=== PATIENT | female | born 1995 | race African-American/Black ===

== ENCOUNTER 2017-03-07 16:42 | Inpatient (IN) | payer MEDICAID ==
[2017-03-07] MEDS ORDERED: ZOFRAN TAB 4 MG SL PRN (18:03)
--- NOTE | 2017-03-07 18:14 | DR.H&P ---
H&P - History & Physical for Day of: H&P Date: 03/07/17 - Chief Complaint Chief Complaint: LEFT WRIST PAIN, FEELS LIKE SICKLE CELL CRISIS - History of Present Illness History of Present Illness: The patient is a 21-year-old black female who presents [facility] with complaint of left wrist pain, chest pain to lower sternum and back pain. States it feels like she is having a sickle cell crisis. Does feel like she may the anemic as well. States symptoms have been worsening since Tuesday. States the pain is more severe this time that was with a previous crisis. Denies any other complaints. - Past Medical History Additional Medical History: Sickle cell disease - Social History Does patient currently use any type of tobacco product: No Have you used tobacco products in the last 12 months: No Type of Tobacco Use: None Does any household member use tobacco: No Alcohol Use: None Drug Use: None - Review of Systems Constitutional: No Symptoms Reported Eyes: No Symptoms Reported ENT: No Symptoms Reported Respiratory: No Symptoms Reported Cardiovascular: No Symptoms Reported Gastrointestinal: No Symptoms Reported Genitourinary: No Symptoms Reported Musculoskeletal: See HPI, Arm Pain, Back Pain, Hand Pain Skin: No Symptoms Reported Neurological: No Symptoms Reported Oriented: Normal Eyes: Normal Ear: Normal Nose: Normal, Injected Respiratory: Clear Throughout Cardiovascular: Normal : Normal Auscultation: Bowel Sounds: Normal Palpation: Normal Tenderness: Normal Skin: Normal Musculoskeletal: Normal Psychiatric: Normal Mood Description: Calm Affect: Normal Speech Pattern: Clear - Assessment/Plan (1) Sickle cell crisis Status: Acute Plan: IV Hydration, CBC, CMP, Retic Count, Pain mgmt (2) Joint pain Status: Acute Plan: Pain mgmt
[2017-03-07 19:00] LABS: RETICULOCYTE % 7.47 % (0.8-2.2)
[2017-03-07 19:01] LABS: BASOPHILS # (AUTO) 0.2 X10^3/uL (0.0-0.1); BASOPHILS % (AUTO) 0.8 % (0.2-1.0); EOSINOPHILS # (AUTO) 0.3 x10^3/uL (0.0-0.2); EOSINOPHILS % (AUTO) 1.5 % (0.9-2.9); HEMATOCRIT 28.4 % (36.0-47.0); HEMOGLOBIN 9.6 g/dL (12.0-16.0); LYMPHOCYTES # (AUTO) 5.8 X10^3/uL (1.3-2.9); LYMPHOCYTES % (AUTO) 25.6 % (21.0-51.0); MEAN CORPUSCULAR HEMOGLOBIN 29.1 pg (27.0-34.0); MEAN CORPUSCULAR HGB CONC 33.7 g/dL (33.0-35.0); MEAN CORPUSCULAR VOLUME 86.3 fL (80.0-100.0); MEAN PLATELET VOLUME 7.2 fL (7.4-11.0); MONOCYTES # (AUTO) 2.7 x10^3/uL (0.3-0.8); MONOCYTES % (AUTO) 12.1 % (0.0-13.0); NEUTROPHILS # (AUTO) 13.5 x10^3/uL (2.2-4.8); PLATELET COUNT 271 X10^3/uL (150.0-450.0); RED BLOOD COUNT 3.29 X10^6/uL (3.5-5.4); RED CELL DISTRIBUTION WIDTH 17.2 % (11.6-16.5); WHITE BLOOD COUNT 22.6 X10^3/uL (3.6-10.0)
[2017-03-07 19:16] LABS: ALANINE AMINOTRANSFERASE 17 Units/L (12-78); ALBUMIN 3.7 g/dL (3.4-5.0); ALKALINE PHOSPHATASE 71 Units/L (46-116); ASPARTATE AMINO TRANSFERASE 17 Units/L (15-37); BLOOD UREA NITROGEN 2 mg/dL (7-18); CALCIUM 9.1 mg/dL (8.5-10.1); CARBON DIOXIDE 28.9 mmol/L (21-32); CHLORIDE 103 mmol/L (98-107); CREATININE 0.62 mg/dL (0.55-1.02); SODIUM 138 mmol/L (136-145); TOTAL PROTEIN 8.5 g/dL (6.4-8.2); eGFR BLACK RACES > 60 (>60); eGFR NON BLACK RACES > 60 (>60)
[2017-03-07 19:29] LABS: BAND NEUTROPHILS % 2 % (0-10); METAMYELOCYTES % 2
[2017-03-07 19:31] LABS: ANISOCYTOSIS 1+; PLATELET MORPHOLOGY COMMENT NORMAL (NORMAL)
[2017-03-07 19:32] LABS: HYPOCHROMASIA SLIGHT; OVALOCYTES PRESENT; TARGET CELLS PRESENT
[2017-03-07] MEDS: NS 1000 ML 1,000 ML IV SCH (20:03)
[2017-03-07] MEDS: DILAUDID INJ IVP PRN (20:05)
[2017-03-07 20:27] VITALS: BMI 26.4
--- NOTE | 2017-03-07 22:33 | RAD ---
Indication: Pain Exam: Portable chest Findings: The heart is borderline enlarged. The pulmonary vessels are normal. No consolidation or eff usion is seen . The bones are intact. Impression: Borderline cardiomegaly with no acute pulmonary abnormality. Reported By:
[2017-03-08] MEDS: DILAUDID INJ IVP PRN ×6 (00:15→20:31)
[2017-03-08] MEDS: BENADRYL INJ 50 MG VIAL IVP PRN ×3 (00:17→16:39)
[2017-03-08] MEDS: NS 1000 ML 1,000 ML IV SCH ×2 (04:26→16:39)
[2017-03-08] MEDS: FOLIC ACID TAB 1 MG PO SCH (08:30)
[2017-03-08] MEDS: COLACE CAP 100 MG PO SCH (10:01)
[2017-03-08] MEDS: PEPCID 20 MG IV PREMIX* 20 MG/50 ML BAG IV SCH ×2 (10:03→20:40)
[2017-03-08] MEDS: NORCO 10/325 TAB PO PRN ×2 (10:13→18:01)
[2017-03-08] MEDS: PHENERGAN INJ 25 MG IVP PRN ×2 (12:37→20:32)
[2017-03-09] MEDS: BENADRYL INJ 50 MG VIAL IVP PRN ×3 (00:39→16:50)
[2017-03-09] MEDS: DILAUDID INJ IVP PRN ×6 (00:44→20:53)
[2017-03-09] MEDS: COLACE CAP 100 MG PO SCH ×2 (01:45→20:53)
[2017-03-09] MEDS: NORCO 10/325 TAB PO PRN ×3 (03:23→23:54)
[2017-03-09] MEDS: PHENERGAN INJ 25 MG IVP PRN ×3 (04:45→20:54)
[2017-03-09 05:10] LABS: BASOPHILS # (AUTO) 0.1 X10^3/uL (0.0-0.1); BASOPHILS % (AUTO) 0.5 % (0.2-1.0); EOSINOPHILS # (AUTO) 0.5 x10^3/uL (0.0-0.2); HEMATOCRIT 24.3 % (36.0-47.0); HEMOGLOBIN 8.2 g/dL (12.0-16.0); LYMPHOCYTES # (AUTO) 5.7 X10^3/uL (1.3-2.9); LYMPHOCYTES % (AUTO) 22.6 % (21.0-51.0); MEAN CORPUSCULAR HEMOGLOBIN 29.4 pg (27.0-34.0); MEAN CORPUSCULAR HGB CONC 33.8 g/dL (33.0-35.0); MEAN CORPUSCULAR VOLUME 86.9 fL (80.0-100.0); MEAN PLATELET VOLUME 7.3 fL (7.4-11.0); MONOCYTES # (AUTO) 4.3 x10^3/uL (0.3-0.8); MONOCYTES % (AUTO) 16.9 % (0.0-13.0); NEUTROPHILS # (AUTO) 14.7 x10^3/uL (2.2-4.8); PLATELET COUNT 244 X10^3/uL (150.0-450.0); RED CELL DISTRIBUTION WIDTH 17.7 % (11.6-16.5); WHITE BLOOD COUNT 25.3 X10^3/uL (3.6-10.0)
[2017-03-09 05:14] LABS: ALANINE AMINOTRANSFERASE 19 Units/L (12-78); ALBUMIN 3.4 g/dL (3.4-5.0); ALKALINE PHOSPHATASE 75 Units/L (46-116); ASPARTATE AMINO TRANSFERASE 24 Units/L (15-37); BLOOD UREA NITROGEN 6 mg/dL (7-18); CALCIUM 8.9 mg/dL (8.5-10.1); CHLORIDE 104 mmol/L (98-107); CREATININE 0.53 mg/dL (0.55-1.02); SODIUM 140 mmol/L (136-145); eGFR BLACK RACES > 60 (>60); eGFR NON BLACK RACES > 60 (>60)
[2017-03-09 06:49] LABS: PLATELET MORPHOLOGY COMMENT NORMAL (NORMAL)
--- NOTE | 2017-03-09 07:20 | RAD ---
HISTORY: Sickle cell anemia, body aches Study: Chest AP portable Comparison: 03/07/2017 Findings: The heart remains enlarged. No congestive heart failure is noted. Increased density in the right lung base is likely due to small infiltrate and some associated subsegmental atelectasis. The remainder o f the right lung and left lungs are clear. The bony thorax is unremarkable. IMPRESSION: Mild cardiomegaly without congestive heart failure Interval development of a small right basilar lung infiltrate with some associated subsegmental atele ctasis Reported By:
[2017-03-09] MEDS: PEPCID 20 MG IV PREMIX* 20 MG/50 ML BAG IV SCH ×2 (08:42→20:52)
[2017-03-09] MEDS: FOLIC ACID TAB 1 MG PO SCH (08:42)
[2017-03-09 09:55] LABS: BILIRUBIN,URINE NEGATIVE (NEGATIVE); BLOOD/HEMOGLOBIN,URINE NEGATIVE (NEGATIVE); GLUCOSE, URINE NEGATIVE (NEGATIVE); KETONES,URINE NEGATIVE (NEGATIVE); LEUKOCYTE ESTERASE ,URINE 1+ (NEGATIVE); NITRITES,URINE NEGATIVE (NEGATIVE); PROTEIN,URINE NEGATIVE (NEGATIVE); UROBILINOGEN,URINE 1+ (NORMAL)
[2017-03-09 10:10] LABS: APPEARANCE,URINE HAZY (CLEAR); BACTERIA,URINE TRACE /HPF (NEGATIVE); COLOR,URINE YELLOW (YELLOW); RBC,URINE 0-2 /HPF (NEGATIVE); SQUAMOUS EPITHELIAL CELL,UR RARE /HPF (NEGATIVE)
[2017-03-09] MEDS: LEVAQUIN PREMIX IV 750 MG 750 MG/150 ML BAG IV SCH (10:10)
[2017-03-09] MEDS: NS 1000 ML 1,000 ML IV SCH ×3 (10:31→22:00)
[2017-03-10] MEDS ORDERED: SALINE 3% 15 ML NEB TX NEB ONE (01:00)
[2017-03-10] MEDS: DILAUDID INJ IVP PRN ×6 (01:02→21:32)
[2017-03-10] MEDS: BENADRYL INJ 50 MG VIAL IVP PRN ×3 (01:02→17:24)
[2017-03-10] MEDS ORDERED: SALINE 3% 15 ML NEB TX ONE (01:05)
[2017-03-10 04:56] LABS: ALANINE AMINOTRANSFERASE 21 Units/L (12-78); ALBUMIN 3.4 g/dL (3.4-5.0); ALKALINE PHOSPHATASE 80 Units/L (46-116); ASPARTATE AMINO TRANSFERASE 20 Units/L (15-37); BLOOD UREA NITROGEN 6 mg/dL (7-18); CALCIUM 8.8 mg/dL (8.5-10.1); CARBON DIOXIDE 29.2 mmol/L (21-32); CHLORIDE 101 mmol/L (98-107); COR NA(FOR HYPERGLY) 139 mmol/L (136-145); CREATININE 0.76 mg/dL (0.55-1.02); SODIUM 137 mmol/L (136-145); TOTAL PROTEIN 8.6 g/dL (6.4-8.2); eGFR BLACK RACES > 60 (>60); eGFR NON BLACK RACES > 60 (>60)
[2017-03-10] MEDS: PHENERGAN INJ 25 MG IVP PRN ×3 (05:10→21:32)
[2017-03-10] MEDS: NS 1000 ML 1,000 ML IV SCH ×4 (05:10→17:24)
[2017-03-10] MEDS: DUONEB 0.5 MG/3 MG NEB SCH ×5 (05:16→20:09)
[2017-03-10 06:26] LABS: BASOPHILS # (AUTO) 0.2 X10^3/uL (0.0-0.1); BASOPHILS % (AUTO) 0.7 % (0.2-1.0); EOSINOPHILS # (AUTO) 0.8 x10^3/uL (0.0-0.2); EOSINOPHILS % (AUTO) 2.7 % (0.9-2.9); HEMATOCRIT 24.4 % (36.0-47.0); HEMOGLOBIN 8.1 g/dL (12.0-16.0); LYMPHOCYTES # (AUTO) 4.5 X10^3/uL (1.3-2.9); LYMPHOCYTES % (AUTO) 16.2 % (21.0-51.0); MEAN CORPUSCULAR HEMOGLOBIN 29.3 pg (27.0-34.0); MEAN CORPUSCULAR HGB CONC 33.3 g/dL (33.0-35.0); MEAN PLATELET VOLUME 7.9 fL (7.4-11.0); MONOCYTES # (AUTO) 3.3 x10^3/uL (0.3-0.8); MONOCYTES % (AUTO) 11.7 % (0.0-13.0); NEUTROPHILS # (AUTO) 19.3 x10^3/uL (2.2-4.8); NEUTROPHILS % (AUTO) 68.7 % (42.0-75.0); PLATELET COUNT 238 X10^3/uL (150.0-450.0); RED BLOOD COUNT 2.78 X10^6/uL (3.5-5.4); RED CELL DISTRIBUTION WIDTH 18.5 % (11.6-16.5)
[2017-03-10 06:28] LABS: WHITE BLOOD COUNT 27.3 X10^3/uL (3.6-10.0)
[2017-03-10 06:47] LABS: HYPOCHROMASIA SLIGHT; PLATELET MORPHOLOGY COMMENT NORMAL (NORMAL)
[2017-03-10] MEDS: PEPCID 20 MG IV PREMIX* 20 MG/50 ML BAG IV SCH ×2 (09:02→21:31)
[2017-03-10] MEDS: LEVAQUIN PREMIX IV 750 MG 750 MG/150 ML BAG IV SCH (09:02)
[2017-03-10] MEDS: FOLIC ACID TAB 1 MG PO SCH (09:03)
[2017-03-10] MEDS: NORCO 10/325 TAB PO PRN (11:14)
--- NOTE | 2017-03-10 13:29 | PCM.PROG ---
Progress Note - Progress Note for Day of Date: 03/10/17 - Subjective Subjective: patient is a 21-year-old black female who was admitted with acute sickle cell crisis and complaints of pain all over. Patient had a chest x-ray abnormality suggesting a possible pneumonia. Patient is currently on IV Levaquin as well as respiratory therapy and supplemental O2. Patient is noncompliant with use of supplemental O2 as directed. Patient continues to complain of pain to chest and bilateral upper extremities "feels like sickle cell". Patient had increased white blood cells today at 27,000, blood cultures are negative at this time. CT of the chest and abdominal series ordered. Continue respiratory care encouraged patient to produce a sputum specimen repeat a.m. labs. - Past Medical Family Social History Past Med/Fam/Surg Hx: No changes since H&P Allergies: Allergies No Known Drug Allergies [NKDA] Allergy (Verified 03/07/17 18:32) - Review of Systems ROS: No change since H&P - Vital Signs and I&O's Vital Signs: Temperature 99.4 F Pulse Rate [Right Brachial] 113 Pulse Rate 82 Respiratory Rate 18 Blood Pressure [Right Arm] 126/74 O2 Sat by Pulse Oximetry 96 Intake and Output: Intake & Output 03/08/17 03/09/17 03/10/17 03/11/17 11:59 11:59 11:59 11:59 Intake Total 1110 2094 5430 Balance 1110 2094 5430 - Physical Exam Oriented: Normal Eyes: Normal Ear: Normal Nose: Normal, Injected Respiratory: Diminished Cardiovascular: Normal : Normal Auscultation: Bowel Sounds: Normal Tenderness: Normal Skin: Normal Musculoskeletal: Normal, Right, Left, Shoulder, Forearm, Back:Lumbar, Tender ( diffuse muscle tenderness) Psychiatric: Normal Mood Description: Calm Affect: Normal Speech Pattern: Clear, Appropriate - Laboratory and Diagnostics Result Diagrams: 03/10/17 04:30 03/10/17 04:30 Labs: 03/07/17 18:40 Blood Blood Culture - Preliminary 03/07/17 18:45 Blood Blood Culture - Preliminary Laboratory WBC 27.3 X10^3/uL (3.6-10.0) H 03/10/17 04:30 RBC 2.78 X10^6/uL (3.5-5.4) L 03/10/17 04:30 Hgb 8.1 g/dL (12.0-16.0) L 03/10/17 04:30 Hct 24.4 % (36.0-47.0) L 03/10/17 04:30 MCV 88.0 fL (80.0-100.0) 03/10/17 04:30 MCH 29.3 pg (27.0-34.0) 03/10/17 04:30 MCHC 33.3 g/dL (33.0-35.0) 03/10/17 04:30 RDW 18.5 % (11.6-16.5) H 03/10/17 04:30 Plt Count 238 X10^3/uL (150.0-450.0) 03/10/17 04:30 Plt Count Comment Adequate (ADEQUATE) 03/10/17 04:30 MPV 7.9 fL (7.4-11.0) 03/10/17 04:30 Neut % 68.7 % (42.0-75.0) 03/10/17 04:30 Lymph % 16.2 % (21.0-51.0) L 03/10/17 04:30 [place] % 11.7 % (0.0-13.0) 03/10/17 04:30 Eos % 2.7 % (0.9-2.9) 03/10/17 04:30 Baso % 0.7 % (0.2-1.0) 03/10/17 04:30 Neut # 19.3 x10^3/uL (2.2-4.8) H 03/10/17 04:30 Lymph # 4.5 X10^3/uL (1.3-2.9) H 03/10/17 04:30 [place] # 3.3 x10^3/uL (0.3-0.8) H 03/10/17 04:30 Eos # 0.8 x10^3/uL (0.0-0.2) H 03/10/17 04:30 Baso # 0.2 X10^3/uL (0.0-0.1) H 03/10/17 04:30 Absolute Nucleated RBC 0.4 /100WBC 03/10/17 04:30 Total Counted 100 03/10/17 04:30 Neutrophils % (Manual) 67 % (39-76) 03/10/17 04:30 Band Neutrophils % 2 % (0-10) 03/07/17 18:40 Lymphocytes % (Manual) 22 % (13-43) 03/10/17 04:30 Monocytes % (Manual) 10 % (4-9) H 03/10/17 04:30 Eosinophils % (Manual) 1 % (0-6) 03/10/17 04:30 Metamyelocytes % 2 03/07/17 18:40 Nucleated RBCs 1 03/07/17 18:40 Atypical Lymphocytes 3 03/07/17 18:40 Plt Morphology Comment Normal (NORMAL) 03/10/17 04:30 RBC Morphology Abnormal (NORMAL) A 03/10/17 04:30 Hypochromasia Slight A 03/10/17 04:30 Anisocytosis 1+ A 03/07/17 18:40 Target Cells Present 03/07/17 18:40 Ovalocytes Present 03/07/17 18:40 Absolute Retic 0.2454 10^6/uL 03/07/17 18:40 Percent Retic 7.47 % (0.8-2.2) H 03/07/17 18:40 Sodium 137 mmol/L (136-145) 03/10/17 04:30 Corrected Sodium 139 mmol/L (136-145) 03/10/17 04:30 Potassium 3.9 mmol/L (3.5-5.1) 03/10/17 04:30 Chloride 101 mmol/L (98-107) 03/10/17 04:30 Carbon Dioxide 29.2 mmol/L (21-32) 03/10/17 04:30 BUN 6 mg/dL (7-18) L 03/10/17 04:30 Creatinine 0.76 mg/dL (0.55-1.02) 03/10/17 04:30 Est GFR (MDRD) Af Amer > 60 (>60) 03/10/17 04:30 Est GFR (MDRD) Non-Af > 60 (>60) 03/10/17 04:30 Glucose 171 mg/dL (65-99) H 03/10/17 04:30 Calcium 8.8 mg/dL (8.5-10.1) 03/10/17 04:30 Corrected Calcium TNP 03/10/17 04:30 Total Bilirubin 1.30 mg/dL (0.2-1.0) H 03/10/17 04:30 AST 20 Units/L (15-37) 03/10/17 04:30 ALT 21 Units/L (12-78) 03/10/17 04:30 Alkaline Phosphatase 80 Units/L (46-116) 03/10/17 04:30 Total Protein 8.6 g/dL (6.4-8.2) H 03/10/17 04:30 Albumin 3.4 g/dL (3.4-5.0) 03/10/17 04:30 Globulin 5.2 g/dL (2.5-4.5) H 03/10/17 04:30 Albumin/Globulin Ratio 0.7 Ratio (1.1-2.1) L 03/10/17 04:30 Specimen Type Clean catch urine 03/09/17 08:23 Urine Color Yellow (YELLOW) 03/09/17 08:23 Urine Appearance Hazy (CLEAR) 03/09/17 08:23 Urine pH 7.0 (5.0 - 8.0) 03/09/17 08:23 Ur Specific [place] 1.005 (1.000-1.030) 03/09/17 08:23 Urine Protein Negative (NEGATIVE) 03/09/17 08:23 Urine Glucose (UA) Negative (NEGATIVE) 03/09/17 08:23 Urine Ketones Negative (NEGATIVE) 03/09/17 08:23 Urine Occult Blood Negative (NEGATIVE) 03/09/17 08:23 Urine Nitrite Negative (NEGATIVE) 03/09/17 08:23 Urine Bilirubin Negative (NEGATIVE) 03/09/17 08:23 Urine Urobilinogen 1+ (NORMAL) 03/09/17 08:23 Ur Leukocyte Esterase 1+ (NEGATIVE) 03/09/17 08:23 Urine RBC 0-2 /HPF (NEGATIVE) 03/09/17 08:23 Urine WBC 0-2 /HPF (NEGATIVE) 03/09/17 08:23 Ur Squamous Epith Cells Rare /HPF (NEGATIVE) 03/09/17 08:23 Urine Bacteria Trace /HPF (NEGATIVE) 03/09/17 08:23 Ur Culture Indicated? No/not indicated 03/09/17 08:23 - Plan (1) Pneumonia Status: Acute Plan: IV ATBX, RESP THERAPY, SUPPLEMENTAL O2. SPUTUM CULTURE. CT CHEST (2) Joint pain Status: Acute Plan: Pain mgmt (3) Sickle cell crisis Status: Acute Plan: IV Hydration, CBC, CMP, Retic Count, Pain mgmt (4) Constipated Status: Acute Plan: ABD SERIES
[2017-03-10] MEDS: TYLENOL 325 MG TAB PO PRN (20:31)
--- NOTE | 2017-03-10 21:22 | RAD ---
ACUTE ABDOMINAL SERIES CLINICAL HISTORY: 21-year-old female with sickle cell anemia, pneumonia and constipation. COMPARISON: None. FINDINGS: AP radiograph the chest demonstrates low lung volumes with borderline cardiomegaly and streaky airspa ce opacities of the right lung base. No effusion or pneumothorax. Pulmonary vascularity is normal. Abdominal radiographs demonstrate a nonobstructive bowel gas pattern. Gas and stool are seen througho ut the colon. There is no small bowel distention. There is no radiographic evidence of pneumoperitone um. Imaged osseous structures are intact. Soft tissues are unremarkable. IMPRESSION: 1. Findings concerning for right lower lobe pneumonia, correlate clinically and follow-up to resoluti on. 2. Nonobstructive bowel gas pattern without radiographic evidence of pneumoperitoneum. Reported By:
[2017-03-10] MEDS: COLACE CAP 100 MG PO SCH (21:31)
--- NOTE | 2017-03-10 22:37 | CT ---
CT chest without contrast Indication: Body pain with sickle cell disease Comparison: Chest x-ray on same day Technique: Multiple axial images of the chest were obtained from the thoracic inlet to the upper abdo men without the administration of IV contrast. Findings: The thyroid gland is unremarkable. Heart size is at the upper limits of normal without pericardial ef fusion. Thoracic aorta is normal in caliber. No enlarged mediastinal or hilar lymphadenopathy given t he limitations of a noncontrast exam. Dense consolidation within the right lower lobe and to less deg ree right middle lobe consistent with pneumonia. Addition there are infiltrates within the inferior l ingula and posterior left lower lobe also consistent with pneumonia. Central airways remain clear. No pleural effusion or pneumothorax. Imaging of the upper abdomen demonstrates prior cholecystectomy. No acute osseous abnormality is iden tified. IMPRESSION: Multifocal pneumonia most severely affecting the right lower lobe. Reported By:
[2017-03-11] MEDS: BENADRYL INJ 50 MG VIAL IVP PRN ×3 (01:25→18:52)
[2017-03-11] MEDS: DILAUDID INJ IVP PRN ×6 (01:26→23:35)
[2017-03-11] MEDS: DUONEB 0.5 MG/3 MG NEB SCH ×6 (01:28→20:21)
[2017-03-11] MEDS: NS 1000 ML 1,000 ML IV SCH ×3 (02:42→18:21)
[2017-03-11] MEDS: TYLENOL 325 MG TAB PO PRN (04:43)
[2017-03-11] MEDS: PHENERGAN INJ 25 MG IVP PRN ×3 (05:36→23:35)
[2017-03-11 06:21] LABS: ALANINE AMINOTRANSFERASE 20 Units/L (12-78); ALBUMIN 3.3 g/dL (3.4-5.0); ALKALINE PHOSPHATASE 74 Units/L (46-116); ASPARTATE AMINO TRANSFERASE 17 Units/L (15-37); BLOOD UREA NITROGEN 6 mg/dL (7-18); CARBON DIOXIDE 27.5 mmol/L (21-32); CHLORIDE 102 mmol/L (98-107); COR CA(FOR HYPOALB) 9.6 mg/dL (8.5-10.1); COR NA(FOR HYPERGLY) 138 mmol/L (136-145); CREATININE 0.63 mg/dL (0.55-1.02); SODIUM 137 mmol/L (136-145); TOTAL PROTEIN 8.5 g/dL (6.4-8.2); eGFR BLACK RACES > 60 (>60); eGFR NON BLACK RACES > 60 (>60)
[2017-03-11 06:44] LABS: BASOPHILS # (AUTO) 0.2 X10^3/uL (0.0-0.1); BASOPHILS % (AUTO) 0.5 % (0.2-1.0); EOSINOPHILS # (AUTO) 0.5 x10^3/uL (0.0-0.2); EOSINOPHILS % (AUTO) 1.1 % (0.9-2.9); HEMATOCRIT 21.1 % (36.0-47.0); HEMOGLOBIN 7.2 g/dL (12.0-16.0); LYMPHOCYTES # (AUTO) 3.3 X10^3/uL (1.3-2.9); LYMPHOCYTES % (AUTO) 7.7 % (21.0-51.0); MEAN CORPUSCULAR HEMOGLOBIN 29.5 pg (27.0-34.0); MEAN CORPUSCULAR HGB CONC 34.2 g/dL (33.0-35.0); MEAN PLATELET VOLUME 7.2 fL (7.4-11.0); MONOCYTES # (AUTO) 4.6 x10^3/uL (0.3-0.8); MONOCYTES % (AUTO) 10.8 % (0.0-13.0); NEUTROPHILS # (AUTO) 34.2 x10^3/uL (2.2-4.8); NEUTROPHILS % (AUTO) 79.9 % (42.0-75.0); PLATELET COUNT 188 X10^3/uL (150.0-450.0); RED BLOOD COUNT 2.45 X10^6/uL (3.5-5.4); RED CELL DISTRIBUTION WIDTH 19.2 % (11.6-16.5)
[2017-03-11 06:52] LABS: WHITE BLOOD COUNT 42.9 X10^3/uL (3.6-10.0)
[2017-03-11 06:53] LABS: PLATELET MORPHOLOGY COMMENT NORMAL (NORMAL)
[2017-03-11 06:54] LABS: ANISOCYTOSIS SLIGHT; HYPOCHROMASIA SLIGHT; MICROCYTOSIS SLIGHT
[2017-03-11] MEDS ORDERED: PHARMACY CONSULT - VANCOMYCIN XX SCH (09:00)
[2017-03-11] MEDS: FOLIC ACID TAB 1 MG PO SCH (09:11)
[2017-03-11] MEDS: ROBITUSSIN DM PO SCH ×4 (09:11→20:24)
[2017-03-11] MEDS: PEPCID 20 MG IV PREMIX* 20 MG/50 ML BAG IV SCH ×2 (09:11→20:35)
[2017-03-11] MEDS: NORCO 10/325 TAB PO PRN (10:00)
[2017-03-11 10:13] LABS: ABG BASE EXCESS 5.3 mmol/L (-2.0-2.0); ABG HCO3 29.9 mmol/L (22-26)
[2017-03-11 10:15] LABS: ABG ALLEN TEST POS
[2017-03-11] MEDS: MAXIPIME 2 GM in NS 100 ML IV + SPIKE MINIBAG* 100 ML IV SCH ×2 (11:18→20:35)
[2017-03-11] MEDS: VANCOMYCIN HCL 1 GM VIAL 1 GM in NS 250 ML IV 250 ML IV SCH ×2 (11:49→20:36)
[2017-03-11] MEDS: ZOSYN VIAL 4.5 GM 4.5 GM in NS 100 ML IV + SPIKE MINIBAG* 100 ML IV SCH ×2 (13:55→22:54)
--- NOTE | 2017-03-11 15:05 | PCM.PROG ---
Progress Note - Progress Note for Day of Date: 03/11/17 - Subjective Subjective: patient is a 21-year-old black female who was admitted with acute sickle cell crisis and complaints of pain all over. PATIENT CONTINUES TO COMPLAIN OF PAIN THIS MORNING WITH COMPLAINTS OF FEVER DURING THE NIGHT. PATIENT HAD A ct OF HER CHEST REVEALING A MULTIFOCAL PNEUMONIA. pATIENT WAS ON iv lEVAQUIN WITH RESPIRATORY THERAPY AND SUPPLEMENTAL o2. dURING THE NIGHT PATIENT'S TEMPERATURE WAS 101, WITH WHITE COUNT INCREASED TO 40K. PATIENT WAS STARTED ON iv VANCOMYCIN, CEFEPIME, AND zOSYN, REPEAT BLOOD CULTURES, ENCOURAGED PATIENT TO WEAR SUPPLEMENTAL o2 PULMONARY TOILETING AND ORAL HYDRATION. cONSULT A SURGEON FOR CENTRAL LINE PLACEMENT - Past Medical Family Social History Past Med/Fam/Surg Hx: No changes since H&P Allergies: Allergies No Known Drug Allergies [NKDA] Allergy (Verified 03/07/17 18:32) - Review of Systems ROS: No change since H&P - Vital Signs and I&O's Vital Signs: Temperature 98.8 F Pulse Rate [Right Brachial] 114 Pulse Rate 113 Respiratory Rate 20 Blood Pressure [Right Arm] 116/60 O2 Sat by Pulse Oximetry 94 Intake and Output: Intake & Output 03/09/17 03/10/17 03/11/17 03/12/17 11:59 11:59 11:59 11:59 Intake Total 2094 5430 4060 Balance 2094 5430 4060 - Physical Exam Oriented: Normal Eyes: Normal Ear: Normal Nose: Normal, Injected Respiratory: Diminished Cardiovascular: Normal : Normal Auscultation: Bowel Sounds: Normal Tenderness: Normal Skin: Normal Musculoskeletal: Normal, Right, Left, Shoulder, Forearm, Back:Lumbar, Tender ( diffuse muscle tenderness) Psychiatric: Normal Mood Description: Calm Affect: Normal Speech Pattern: Clear, Appropriate - Laboratory and Diagnostics Result Diagrams: 03/11/17 05:57 03/11/17 05:57 Labs: 03/07/17 18:40 Blood Blood Culture - Preliminary 03/07/17 18:45 Blood Blood Culture - Preliminary Laboratory WBC 42.9 X10^3/uL (3.6-10.0) H* D 03/11/17 05:57 RBC 2.45 X10^6/uL (3.5-5.4) L 03/11/17 05:57 Hgb 7.2 g/dL (12.0-16.0) L 03/11/17 05:57 Hct 21.1 % (36.0-47.0) L 03/11/17 05:57 MCV 86.0 fL (80.0-100.0) 03/11/17 05:57 MCH 29.5 pg (27.0-34.0) 03/11/17 05:57 MCHC 34.2 g/dL (33.0-35.0) 03/11/17 05:57 RDW 19.2 % (11.6-16.5) H 03/11/17 05:57 Plt Count 188 X10^3/uL (150.0-450.0) 03/11/17 05:57 Plt Count Comment Adequate (ADEQUATE) 03/11/17 05:57 MPV 7.2 fL (7.4-11.0) L 03/11/17 05:57 Neut % 79.9 % (42.0-75.0) H 03/11/17 05:57 Lymph % 7.7 % (21.0-51.0) L 03/11/17 05:57 [place] % 10.8 % (0.0-13.0) 03/11/17 05:57 Eos % 1.1 % (0.9-2.9) 03/11/17 05:57 Baso % 0.5 % (0.2-1.0) 03/11/17 05:57 Neut # 34.2 x10^3/uL (2.2-4.8) H 03/11/17 05:57 Lymph # 3.3 X10^3/uL (1.3-2.9) H 03/11/17 05:57 [place] # 4.6 x10^3/uL (0.3-0.8) H 03/11/17 05:57 Eos # 0.5 x10^3/uL (0.0-0.2) H 03/11/17 05:57 Baso # 0.2 X10^3/uL (0.0-0.1) H 03/11/17 05:57 Absolute Nucleated RBC 0.2 /100WBC 03/11/17 05:57 Total Counted 100 03/11/17 05:57 Neutrophils % (Manual) 87 % (39-76) H 03/11/17 05:57 Band Neutrophils % 2 % (0-10) 03/07/17 18:40 Lymphocytes % (Manual) 8 % (13-43) L 03/11/17 05:57 Monocytes % (Manual) 5 % (4-9) 03/11/17 05:57 Eosinophils % (Manual) 1 % (0-6) 03/10/17 04:30 Metamyelocytes % 2 03/07/17 18:40 Nucleated RBCs 2 03/11/17 05:57 Atypical Lymphocytes 3 03/07/17 18:40 Plt Morphology Comment Normal (NORMAL) 03/11/17 05:57 RBC Morphology Abnormal (NORMAL) A 03/11/17 05:57 Hypochromasia Slight A 03/11/17 05:57 Anisocytosis Slight A 03/11/17 05:57 Microcytosis Slight A 03/11/17 05:57 Target Cells Present 03/07/17 18:40 Ovalocytes Present 03/07/17 18:40 Absolute Retic 0.2454 10^6/uL 03/07/17 18:40 Percent Retic 7.47 % (0.8-2.2) H 03/07/17 18:40 Sample Site R rad 03/11/17 10:00 ABG pH 7.450 (7.35-7.45) 03/11/17 10:00 ABG pCO2 43.0 mmHg (35.0-45.0) 03/11/17 10:00 ABG pO2 47.0 mmHg (80.0-100.0) L* 03/11/17 10:00 ABG HCO3 29.9 mmol/L (22-26) H 03/11/17 10:00 ABG O2 Saturation 85.0 % (90-100) L 03/11/17 10:00 ABG Base Excess 5.3 mmol/L (-2.0-2.0) H 03/11/17 10:00 Andrea Test Pos 03/11/17 10:00 A-a Gradient 49.0 mmHg 03/11/17 10:00 FiO2 21.000 03/11/17 10:00 Blood Gas Comments Ber[place]. well kb 03/11/17 10:00 Sodium 137 mmol/L (136-145) 03/11/17 05:57 Corrected Sodium 138 mmol/L (136-145) 03/11/17 05:57 Potassium 4.1 mmol/L (3.5-5.1) 03/11/17 05:57 Chloride 102 mmol/L (98-107) 03/11/17 05:57 Carbon Dioxide 27.5 mmol/L (21-32) 03/11/17 05:57 BUN 6 mg/dL (7-18) L 03/11/17 05:57 Creatinine 0.63 mg/dL (0.55-1.02) 03/11/17 05:57 Est GFR (MDRD) Af Amer > 60 (>60) 03/11/17 05:57 Est GFR (MDRD) Non-Af > 60 (>60) 03/11/17 05:57 Glucose 127 mg/dL (65-99) H 03/11/17 05:57 Calcium 9.0 mg/dL (8.5-10.1) 03/11/17 05:57 Corrected Calcium 9.6 mg/dL (8.5-10.1) 03/11/17 05:57 Total Bilirubin 2.60 mg/dL (0.2-1.0) H 03/11/17 05:57 AST 17 Units/L (15-37) 03/11/17 05:57 ALT 20 Units/L (12-78) 03/11/17 05:57 Alkaline Phosphatase 74 Units/L (46-116) 03/11/17 05:57 Total Protein 8.5 g/dL (6.4-8.2) H 03/11/17 05:57 Albumin 3.3 g/dL (3.4-5.0) L 03/11/17 05:57 Globulin 5.2 g/dL (2.5-4.5) H 03/11/17 05:57 Albumin/Globulin Ratio 0.6 Ratio (1.1-2.1) L 03/11/17 05:57 Specimen Type Clean catch urine 03/09/17 08:23 Urine Color Yellow (YELLOW) 03/09/17 08:23 Urine Appearance Hazy (CLEAR) 03/09/17 08:23 Urine pH 7.0 (5.0 - 8.0) 03/09/17 08:23 Ur Specific [place] 1.005 (1.000-1.030) 03/09/17 08:23 Urine Protein Negative (NEGATIVE) 03/09/17 08:23 Urine Glucose (UA) Negative (NEGATIVE) 03/09/17 08:23 Urine Ketones Negative (NEGATIVE) 03/09/17 08:23 Urine Occult Blood Negative (NEGATIVE) 03/09/17 08:23 Urine Nitrite Negative (NEGATIVE) 03/09/17 08:23 Urine Bilirubin Negative (NEGATIVE) 03/09/17 08:23 Urine Urobilinogen 1+ (NORMAL) 03/09/17 08:23 Ur Leukocyte Esterase 1+ (NEGATIVE) 03/09/17 08:23 Urine RBC 0-2 /HPF (NEGATIVE) 03/09/17 08:23 Urine WBC 0-2 /HPF (NEGATIVE) 03/09/17 08:23 Ur Squamous Epith Cells Rare /HPF (NEGATIVE) 03/09/17 08:23 Urine Bacteria Trace /HPF (NEGATIVE) 03/09/17 08:23 Ur Culture Indicated? No/not indicated 03/09/17 08:23 - Plan (1) Pneumonia Status: Acute Plan: CT revealed multifocal pneumonia, WBCs up to 42.9. Repeat blood cultures , encouraged patient to collect a sputum specimen, where a 2, ABG this morning, IV Zosyn, cefepime, vancomycin. DC Levaquin. Continue jet and abscess every 4 hours, pulmonary toileting and repeat a.m. labs (2) Joint pain Status: Acute Plan: Pain mgmt (3) Sickle cell crisis Status: Acute Plan: IV Hydration, CBC, CMP, Retic Count, Pain mgmt (4) Constipated Status: Acute Plan: ABD SERIES
--- NOTE | 2017-03-11 16:38 | RAD ---
Examination: Portable AP chest History: Central line placement Findings: A left-sided surgical catheter is present, as sending in the left neck, presumably in the j ugular vein. The tip of the catheter is not included on the radiographic image. No pneumothorax is se en. There is extensive infiltrate in the right lower lung. Impression: Surgical catheter position as described in the left neck. Large area of airspace consolid ation in the right lower lung. Reported By:
[2017-03-11] MEDS: COLACE CAP 100 MG PO SCH (20:24)
[2017-03-12] MEDS: DUONEB 0.5 MG/3 MG NEB SCH ×5 (00:27→16:50)
[2017-03-12] MEDS: DILAUDID INJ IVP PRN ×6 (03:44→23:55)
[2017-03-12] MEDS: BENADRYL INJ 50 MG VIAL IVP PRN ×3 (03:45→19:50)
[2017-03-12] MEDS: NS 1000 ML 1,000 ML IV SCH ×4 (03:47→19:08)
[2017-03-12] MEDS: ZOSYN VIAL 4.5 GM 4.5 GM in NS 100 ML IV + SPIKE MINIBAG* 100 ML IV SCH ×3 (05:03→21:11)
[2017-03-12 06:09] LABS: ALANINE AMINOTRANSFERASE 18 Units/L (12-78); ALBUMIN 3.1 g/dL (3.4-5.0); ALKALINE PHOSPHATASE 77 Units/L (46-116); ASPARTATE AMINO TRANSFERASE 23 Units/L (15-37); BLOOD UREA NITROGEN 7 mg/dL (7-18); CALCIUM 9.1 mg/dL (8.5-10.1); CARBON DIOXIDE 28.4 mmol/L (21-32); CHLORIDE 102 mmol/L (98-107); COR CA(FOR HYPOALB) 9.8 mg/dL (8.5-10.1); CREATININE 0.72 mg/dL (0.55-1.02); SODIUM 138 mmol/L (136-145); TOTAL PROTEIN 8.4 g/dL (6.4-8.2); eGFR BLACK RACES > 60 (>60); eGFR NON BLACK RACES > 60 (>60)
[2017-03-12 06:11] LABS: BASOPHILS # (AUTO) 0.2 X10^3/uL (0.0-0.1); BASOPHILS % (AUTO) 0.4 % (0.2-1.0); EOSINOPHILS # (AUTO) 0.5 x10^3/uL (0.0-0.2); EOSINOPHILS % (AUTO) 1.2 % (0.9-2.9); HEMATOCRIT 20.8 % (36.0-47.0); HEMOGLOBIN 7.1 g/dL (12.0-16.0); LYMPHOCYTES # (AUTO) 3.1 X10^3/uL (1.3-2.9); LYMPHOCYTES % (AUTO) 7.2 % (21.0-51.0); MEAN CORPUSCULAR HEMOGLOBIN 29.1 pg (27.0-34.0); MEAN CORPUSCULAR HGB CONC 33.9 g/dL (33.0-35.0); MEAN CORPUSCULAR VOLUME 85.9 fL (80.0-100.0); MEAN PLATELET VOLUME 7.8 fL (7.4-11.0); MONOCYTES # (AUTO) 5.1 x10^3/uL (0.3-0.8); MONOCYTES % (AUTO) 11.9 % (0.0-13.0); NEUTROPHILS # (AUTO) 34.3 x10^3/uL (2.2-4.8); NEUTROPHILS % (AUTO) 79.3 % (42.0-75.0); PLATELET COUNT 244 X10^3/uL (150.0-450.0); RED BLOOD COUNT 2.42 X10^6/uL (3.5-5.4); RED CELL DISTRIBUTION WIDTH 19.4 % (11.6-16.5)
[2017-03-12 06:22] LABS: WHITE BLOOD COUNT 43.3 X10^3/uL (3.6-10.0)
[2017-03-12 06:41] LABS: PLATELET MORPHOLOGY COMMENT NORMAL (NORMAL)
[2017-03-12 06:43] LABS: ANISOCYTOSIS 2+
[2017-03-12 06:44] LABS: HYPOCHROMASIA SLIGHT
[2017-03-12] MEDS: PHENERGAN INJ 25 MG IVP PRN ×3 (07:52→23:55)
[2017-03-12] MEDS: FOLIC ACID TAB 1 MG PO SCH (09:37)
[2017-03-12] MEDS: ROBITUSSIN DM PO SCH ×4 (09:37→21:10)
[2017-03-12] MEDS: PEPCID 20 MG IV PREMIX* 20 MG/50 ML BAG IV SCH ×2 (09:38→21:10)
[2017-03-12] MEDS: VANCOMYCIN HCL 1 GM VIAL 1 GM in NS 250 ML IV 250 ML IV SCH ×2 (09:38→21:45)
[2017-03-12] MEDS: MAXIPIME 2 GM in NS 100 ML IV + SPIKE MINIBAG* 100 ML IV SCH ×2 (09:38→21:10)
[2017-03-12] MEDS: NORCO 10/325 TAB PO PRN (10:38)
--- NOTE | 2017-03-12 12:05 | RAD ---
Examination: Chest, PA and lateral views History: Pneumonia, sickle cell Comparison March 11, 2017 Findings: Stable heart size with persistent bilateral lower lobe infiltrates. Low lung volumes with d iaphragm elevation. Left subclavian catheter now extends to the cavoatrial junction. No pneumothorax seen. Impression: Bilateral lower lobe infiltrates consistent with pneumonia. Interval change in position o f central line. Reported By:
[2017-03-12 15:55] LABS: BASOPHILS # (AUTO) 0.2 X10^3/uL (0.0-0.1); BASOPHILS % (AUTO) 0.4 % (0.2-1.0); EOSINOPHILS # (AUTO) 0.6 x10^3/uL (0.0-0.2); EOSINOPHILS % (AUTO) 1.5 % (0.9-2.9); LYMPHOCYTES # (AUTO) 3.6 X10^3/uL (1.3-2.9); LYMPHOCYTES % (AUTO) 8.3 % (21.0-51.0); MEAN CORPUSCULAR HEMOGLOBIN 28.9 pg (27.0-34.0); MEAN CORPUSCULAR HGB CONC 34.2 g/dL (33.0-35.0); MEAN CORPUSCULAR VOLUME 84.4 fL (80.0-100.0); MEAN PLATELET VOLUME 7.5 fL (7.4-11.0); MONOCYTES # (AUTO) 5.8 x10^3/uL (0.3-0.8); MONOCYTES % (AUTO) 13.5 % (0.0-13.0); NEUTROPHILS # (AUTO) 32.9 x10^3/uL (2.2-4.8); NEUTROPHILS % (AUTO) 76.3 % (42.0-75.0); PLATELET COUNT 222 X10^3/uL (150.0-450.0); RED BLOOD COUNT 2.09 X10^6/uL (3.5-5.4); RED CELL DISTRIBUTION WIDTH 19.6 % (11.6-16.5)
[2017-03-12 15:58] LABS: WHITE BLOOD COUNT 43.1 X10^3/uL (3.6-10.0)
[2017-03-12 16:00] LABS: HEMATOCRIT 17.6 % (36.0-47.0)
[2017-03-12 16:02] LABS: PLATELET MORPHOLOGY COMMENT NORMAL (NORMAL)
[2017-03-12 16:08] LABS: POIKILOCYTOSIS SLIGHT
[2017-03-12 16:09] LABS: ANISOCYTOSIS 3+; MICROCYTOSIS 1+; SICKLE CELLS SLIGHT; TARGET CELLS SLIGHT
[2017-03-12 16:50] LABS: HEMATOCRIT 16.6 % (36.0-47.0); HEMOGLOBIN 5.8 g/dL (12.0-16.0)
[2017-03-12 17:02] LABS: RETICULOCYTE % 15.46 % (0.8-2.2)
[2017-03-12 20:22] LABS: CREATININE 0.6 mg/dL (0.55-1.02); VANCOMYCIN,TROUGH 4.9 ug/mL (15-20)
[2017-03-12] MEDS ORDERED: PHARMACY COMMENT IV NR (20:30)
[2017-03-12] MEDS: COLACE CAP 100 MG PO SCH (21:10)
[2017-03-12] MEDS: TYLENOL 325 MG TAB PO PRN (22:46)
[2017-03-13] MEDS: DUONEB 0.5 MG/3 MG NEB SCH ×6 (00:19→20:22)
[2017-03-13] MEDS: BENADRYL INJ 50 MG VIAL IVP PRN ×3 (04:15→21:00)
[2017-03-13] MEDS: DILAUDID INJ IVP PRN ×5 (04:15→20:57)
[2017-03-13] MEDS: ZOSYN VIAL 4.5 GM 4.5 GM in NS 100 ML IV + SPIKE MINIBAG* 100 ML IV SCH ×3 (05:12→21:17)
[2017-03-13 06:57] LABS: BASOPHILS # (AUTO) 0.2 X10^3/uL (0.0-0.1); BASOPHILS % (AUTO) 0.4 % (0.2-1.0); EOSINOPHILS % (AUTO) 2.2 % (0.9-2.9); LYMPHOCYTES # (AUTO) 6.2 X10^3/uL (1.3-2.9); LYMPHOCYTES % (AUTO) 13.5 % (21.0-51.0); MEAN CORPUSCULAR HEMOGLOBIN 29.8 pg (27.0-34.0); MEAN CORPUSCULAR HGB CONC 34.6 g/dL (33.0-35.0); MEAN CORPUSCULAR VOLUME 86.1 fL (80.0-100.0); MEAN PLATELET VOLUME 7.7 fL (7.4-11.0); MONOCYTES # (AUTO) 4.9 x10^3/uL (0.3-0.8); MONOCYTES % (AUTO) 10.7 % (0.0-13.0); NEUTROPHILS # (AUTO) 33.7 x10^3/uL (2.2-4.8); NEUTROPHILS % (AUTO) 73.2 % (42.0-75.0); PLATELET COUNT 242 X10^3/uL (150.0-450.0); RED CELL DISTRIBUTION WIDTH 20.3 % (11.6-16.5)
[2017-03-13 07:14] LABS: ALANINE AMINOTRANSFERASE 20 Units/L (12-78); ALBUMIN 2.8 g/dL (3.4-5.0); ALKALINE PHOSPHATASE 83 Units/L (46-116); ASPARTATE AMINO TRANSFERASE 23 Units/L (15-37); BLOOD UREA NITROGEN 6 mg/dL (7-18); CALCIUM 8.6 mg/dL (8.5-10.1); CARBON DIOXIDE 26.9 mmol/L (21-32); CHLORIDE 105 mmol/L (98-107); COR CA(FOR HYPOALB) 9.6 mg/dL (8.5-10.1); COR NA(FOR HYPERGLY) 140 mmol/L (136-145); CREATININE 0.64 mg/dL (0.55-1.02); SODIUM 140 mmol/L (136-145); TOTAL PROTEIN 7.9 g/dL (6.4-8.2); eGFR BLACK RACES > 60 (>60); eGFR NON BLACK RACES > 60 (>60)
[2017-03-13 07:22] LABS: HEMATOCRIT 16.4 % (36.0-47.0); HEMOGLOBIN 5.7 g/dL (12.0-16.0)
[2017-03-13 08:17] LABS: PLATELET MORPHOLOGY COMMENT NORMAL (NORMAL)
[2017-03-13 08:19] LABS: METAMYELOCYTES % 2
[2017-03-13 08:20] LABS: POLYCHROMASIA 2+
[2017-03-13 08:26] LABS: ANISOCYTOSIS 3+; HYPOCHROMASIA 2+; POIKILOCYTOSIS 2+; SICKLE CELLS 1+
[2017-03-13 08:27] LABS: TARGET CELLS SLIGHT
[2017-03-13] MEDS: MAXIPIME 2 GM in NS 100 ML IV + SPIKE MINIBAG* 100 ML IV SCH ×2 (08:43→20:57)
[2017-03-13] MEDS: FOLIC ACID TAB 1 MG PO SCH (08:43)
[2017-03-13] MEDS: ROBITUSSIN DM PO SCH ×4 (08:44→20:57)
[2017-03-13] MEDS: PHENERGAN INJ 25 MG IVP PRN ×2 (08:45→16:44)
[2017-03-13] MEDS: PEPCID 20 MG IV PREMIX* 20 MG/50 ML BAG IV SCH ×2 (10:39→20:56)
[2017-03-13] MEDS: NS 1000 ML 1,000 ML IV SCH ×2 (10:39→23:04)
[2017-03-13] MEDS: NS IV SCH ×2 (10:39→23:34)
[2017-03-13] MEDS: VANCOMYCIN HCL IV SCH ×2 (10:39→23:34)
[2017-03-13 19:50] LABS: HEMOGLOBIN 5.5 g/dL (12.0-16.0)
[2017-03-13 19:51] LABS: HEMATOCRIT 16.4 % (36.0-47.0)
[2017-03-13] MEDS: COLACE CAP 100 MG PO SCH (20:57)
[2017-03-14] MEDS: DUONEB 0.5 MG/3 MG NEB SCH ×6 (01:02→20:59)
[2017-03-14] MEDS: DILAUDID INJ IVP PRN ×5 (01:13→18:22)
[2017-03-14] MEDS: PHENERGAN INJ 25 MG IVP PRN ×3 (01:16→18:23)
[2017-03-14] MEDS: BENADRYL INJ 50 MG VIAL IVP PRN ×2 (05:38→20:15)
[2017-03-14] MEDS: ZOSYN VIAL 4.5 GM 4.5 GM in NS 100 ML IV + SPIKE MINIBAG* 100 ML IV SCH ×3 (06:10→21:21)
[2017-03-14 06:15] LABS: BASOPHILS # (AUTO) 0.1 X10^3/uL (0.0-0.1); BASOPHILS % (AUTO) 0.3 % (0.2-1.0); EOSINOPHILS % (AUTO) 2.6 % (0.9-2.9); LYMPHOCYTES # (AUTO) 7.4 X10^3/uL (1.3-2.9); LYMPHOCYTES % (AUTO) 19.3 % (21.0-51.0); MEAN CORPUSCULAR HEMOGLOBIN 30.9 pg (27.0-34.0); MEAN CORPUSCULAR HGB CONC 34.1 g/dL (33.0-35.0); MEAN CORPUSCULAR VOLUME 90.6 fL (80.0-100.0); MEAN PLATELET VOLUME 7.8 fL (7.4-11.0); MONOCYTES # (AUTO) 4.2 x10^3/uL (0.3-0.8); NEUTROPHILS # (AUTO) 25.4 x10^3/uL (2.2-4.8); NEUTROPHILS % (AUTO) 66.8 % (42.0-75.0); PLATELET COUNT 240 X10^3/uL (150.0-450.0); RED BLOOD COUNT 1.69 X10^6/uL (3.5-5.4); RED CELL DISTRIBUTION WIDTH 22.5 % (11.6-16.5)
[2017-03-14 06:26] LABS: WHITE BLOOD COUNT 38.1 X10^3/uL (3.6-10.0)
[2017-03-14 06:27] LABS: HEMATOCRIT 15.3 % (36.0-47.0); HEMOGLOBIN 5.2 g/dL (12.0-16.0)
[2017-03-14 06:55] LABS: ALANINE AMINOTRANSFERASE 19 Units/L (12-78); ALBUMIN 2.6 g/dL (3.4-5.0); ALKALINE PHOSPHATASE 86 Units/L (46-116); ASPARTATE AMINO TRANSFERASE 28 Units/L (15-37); BLOOD UREA NITROGEN 3 mg/dL (7-18); CALCIUM 8.4 mg/dL (8.5-10.1); CARBON DIOXIDE 29.2 mmol/L (21-32); CHLORIDE 104 mmol/L (98-107); COR CA(FOR HYPOALB) 9.5 mg/dL (8.5-10.1); CREATININE 0.64 mg/dL (0.55-1.02); SODIUM 141 mmol/L (136-145); TOTAL PROTEIN 7.4 g/dL (6.4-8.2); eGFR BLACK RACES > 60 (>60); eGFR NON BLACK RACES > 60 (>60)
[2017-03-14 07:10] LABS: HYPOCHROMASIA 2+; PLATELET MORPHOLOGY COMMENT NORMAL (NORMAL); SICKLE CELLS RARE
[2017-03-14 07:11] LABS: ANISOCYTOSIS 2+
[2017-03-14] MEDS: FOLIC ACID TAB 1 MG PO SCH (08:42)
[2017-03-14] MEDS: PEPCID 20 MG IV PREMIX* 20 MG/50 ML BAG IV SCH ×2 (08:42→21:21)
[2017-03-14] MEDS: ROBITUSSIN DM PO SCH ×4 (08:46→21:21)
[2017-03-14] MEDS ORDERED: TYLENOL 325 MG TAB PO PRN (09:20)
[2017-03-14] MEDS ORDERED: BENADRYL INJ 50 MG VIAL IVP PRN (09:20)
[2017-03-14] MEDS ORDERED: NS 500 ML IV 500 ML IV ONE ×2 (09:20→20:33)
[2017-03-14] MEDS: MAXIPIME 2 GM in NS 100 ML IV + SPIKE MINIBAG* 100 ML IV SCH ×2 (09:24→21:21)
[2017-03-14] MEDS: NS IV SCH (10:36)
[2017-03-14] MEDS: VANCOMYCIN HCL IV SCH (10:36)
--- NOTE | 2017-03-14 17:30 | CT ---
CT of the chest without contrast. Indication: Body pains with history of sickle cell anemia. Patient has concerns for pneumonia on prio r radiographs done March 12, 2017. Technique: 5 mm axial images through the chest was performed without IV contrast. Findings: There are bilateral lower lobe airspace and interstitial opacities. There is also airspace opacities within the inguinal and right middle lobes. The airway is patent with air bronchograms seen within the right lower lobe pulmonary opacities. No pleural effusions seen. No axillary or mediastin al adenopathy is seen. The left IJ catheter is in good position. Images of the upper abdomen are unre markable. The bone windows show no abnormality. Conclusion: Multifocal pneumonia as described above. Reported By:
[2017-03-14] MEDS ORDERED: MAGNESIUM SULFATE 1 GM/100 mL PREMIX 1 GM/100 ML BAG IV PRN (18:09)
[2017-03-14] MEDS ORDERED: POTASSIUM CHL 40 MEQ/NS 0.45% 500 ML IV PRN (18:09)
[2017-03-14] MEDS ORDERED: K-RIDER 10 MEQ/NS 100 ML 10 MEQ/100 ML BAG IV PRN (18:09)
[2017-03-14] MEDS ORDERED: MAG-OX TAB PO PRN (18:09)
[2017-03-14] MEDS ORDERED: POTASSIUM CHLORIDE LIQ 20 MEQ UDC PO PRN (18:09)
[2017-03-14] MEDS ORDERED: K-LYTE EFFERVESCENT PO PRN (18:09)
[2017-03-14] MEDS ORDERED: K-DUR TAB 20 MEQ PO ONE ×3 (18:20→18:29)
[2017-03-14] MEDS: NS 1000 ML 1,000 ML IV SCH (19:17)
[2017-03-14] MEDS ORDERED: PHARMACY COMMENT IV SCH (20:30)
[2017-03-14] MEDS: COLACE CAP 100 MG PO SCH (21:21)
[2017-03-14 22:55] LABS: CREATININE 0.64 mg/dL (0.55-1.02)
[2017-03-15] MEDS: NS IV SCH ×2 (00:24→11:00)
[2017-03-15] MEDS: VANCOMYCIN HCL IV SCH ×2 (00:24→11:00)
[2017-03-15] MEDS: DUONEB 0.5 MG/3 MG NEB SCH ×6 (01:21→20:48)
[2017-03-15] MEDS: PHENERGAN INJ 25 MG IVP PRN ×3 (02:30→19:23)
[2017-03-15] MEDS: DILAUDID INJ IVP PRN ×6 (02:30→23:36)
[2017-03-15] MEDS: NS 1000 ML 1,000 ML IV SCH (03:03)
[2017-03-15] MEDS: ZOSYN VIAL 4.5 GM 4.5 GM in NS 100 ML IV + SPIKE MINIBAG* 100 ML IV SCH ×3 (06:47→21:16)
[2017-03-15] MEDS: BENADRYL INJ 50 MG VIAL IVP PRN ×2 (06:49→23:36)
[2017-03-15 08:40] LABS: BASOPHILS # (AUTO) 0.1 X10^3/uL (0.0-0.1); BASOPHILS % (AUTO) 0.5 % (0.2-1.0); EOSINOPHILS # (AUTO) 0.8 x10^3/uL (0.0-0.2); HEMATOCRIT 23.3 % (36.0-47.0); LYMPHOCYTES # (AUTO) 3.9 X10^3/uL (1.3-2.9); LYMPHOCYTES % (AUTO) 14.5 % (21.0-51.0); MEAN CORPUSCULAR HEMOGLOBIN 30.8 pg (27.0-34.0); MEAN CORPUSCULAR HGB CONC 34.3 g/dL (33.0-35.0); MEAN CORPUSCULAR VOLUME 89.8 fL (80.0-100.0); MEAN PLATELET VOLUME 7.2 fL (7.4-11.0); MONOCYTES # (AUTO) 3.3 x10^3/uL (0.3-0.8); MONOCYTES % (AUTO) 12.3 % (0.0-13.0); NEUTROPHILS # (AUTO) 18.8 x10^3/uL (2.2-4.8); NEUTROPHILS % (AUTO) 69.7 % (42.0-75.0); PLATELET COUNT 257 X10^3/uL (150.0-450.0); RED CELL DISTRIBUTION WIDTH 19.8 % (11.6-16.5)
[2017-03-15 08:59] LABS: BLOOD UREA NITROGEN 3 mg/dL (7-18); CALCIUM 8.4 mg/dL (8.5-10.1); CARBON DIOXIDE 29.3 mmol/L (21-32); CHLORIDE 106 mmol/L (98-107); COR NA(FOR HYPERGLY) 142 mmol/L (136-145); CREATININE 0.58 mg/dL (0.55-1.02); SODIUM 142 mmol/L (136-145); eGFR BLACK RACES > 60 (>60); eGFR NON BLACK RACES > 60 (>60)
[2017-03-15 09:03] LABS: ALANINE AMINOTRANSFERASE 22 Units/L (12-78); ALBUMIN 2.6 g/dL (3.4-5.0); ALKALINE PHOSPHATASE 81 Units/L (46-116); ANISOCYTOSIS 2+; ASPARTATE AMINO TRANSFERASE 22 Units/L (15-37); COR CA(FOR HYPOALB) 9.5 mg/dL (8.5-10.1); HYPOCHROMASIA 1+; PLATELET MORPHOLOGY COMMENT NORMAL (NORMAL); TOTAL PROTEIN 7.4 g/dL (6.4-8.2)
[2017-03-15 09:04] LABS: SICKLE CELLS NOTED
[2017-03-15] MEDS: ROBITUSSIN DM PO SCH ×4 (09:49→21:10)
[2017-03-15] MEDS: PEPCID 20 MG IV PREMIX* 20 MG/50 ML BAG IV SCH ×2 (09:49→21:10)
[2017-03-15] MEDS: FOLIC ACID TAB 1 MG PO SCH (09:49)
[2017-03-15] MEDS: MAXIPIME 2 GM in NS 100 ML IV + SPIKE MINIBAG* 100 ML IV SCH ×2 (10:58→21:13)
[2017-03-15] MEDS: POTASSIUM CHL 60 MEQ/NS 0.45% 500 ML IV PRN (13:17)
[2017-03-15] MEDS: VANCOMYCIN HCL 1 GM VIAL 1 GM in D5W 250 ML IV 250 ML IV SCH ×2 (18:50→22:42)
[2017-03-15] MEDS: COLACE CAP 100 MG PO SCH (21:10)
[2017-03-16] MEDS: DUONEB 0.5 MG/3 MG NEB SCH ×6 (01:14→21:32)
[2017-03-16] MEDS: NS 1000 ML 1,000 ML IV SCH ×3 (03:45→23:46)
[2017-03-16] MEDS: DILAUDID INJ IVP PRN ×5 (03:46→20:35)
[2017-03-16] MEDS: PHENERGAN INJ 25 MG IVP PRN ×3 (03:46→20:36)
[2017-03-16 06:16] LABS: BASOPHILS # (AUTO) 0.1 X10^3/uL (0.0-0.1); BASOPHILS % (AUTO) 0.4 % (0.2-1.0); EOSINOPHILS % (AUTO) 3.8 % (0.9-2.9); HEMATOCRIT 21.3 % (36.0-47.0); HEMOGLOBIN 7.2 g/dL (12.0-16.0); LYMPHOCYTES # (AUTO) 2.8 X10^3/uL (1.3-2.9); LYMPHOCYTES % (AUTO) 10.4 % (21.0-51.0); MEAN CORPUSCULAR HEMOGLOBIN 30.8 pg (27.0-34.0); MEAN CORPUSCULAR HGB CONC 33.9 g/dL (33.0-35.0); MEAN CORPUSCULAR VOLUME 90.9 fL (80.0-100.0); MEAN PLATELET VOLUME 7.7 fL (7.4-11.0); MONOCYTES # (AUTO) 2.9 x10^3/uL (0.3-0.8); MONOCYTES % (AUTO) 10.9 % (0.0-13.0); NEUTROPHILS # (AUTO) 19.9 x10^3/uL (2.2-4.8); NEUTROPHILS % (AUTO) 74.5 % (42.0-75.0); PLATELET COUNT 270 X10^3/uL (150.0-450.0); RED BLOOD COUNT 2.35 X10^6/uL (3.5-5.4); RED CELL DISTRIBUTION WIDTH 20.4 % (11.6-16.5)
[2017-03-16 06:35] LABS: ALANINE AMINOTRANSFERASE 21 Units/L (12-78); ALBUMIN 2.5 g/dL (3.4-5.0); ALKALINE PHOSPHATASE 80 Units/L (46-116); ASPARTATE AMINO TRANSFERASE 22 Units/L (15-37); BLOOD UREA NITROGEN 2 mg/dL (7-18); CALCIUM 8.5 mg/dL (8.5-10.1); CHLORIDE 105 mmol/L (98-107); COR CA(FOR HYPOALB) 9.7 mg/dL (8.5-10.1); CREATININE 0.57 mg/dL (0.55-1.02); SODIUM 140 mmol/L (136-145); TOTAL PROTEIN 7.2 g/dL (6.4-8.2); eGFR BLACK RACES > 60 (>60); eGFR NON BLACK RACES > 60 (>60)
[2017-03-16 06:46] LABS: BAND NEUTROPHILS % 1 % (0-10); PLATELET MORPHOLOGY COMMENT NORMAL (NORMAL); WHITE BLOOD COUNT 26.6 X10^3/uL (3.6-10.0)
[2017-03-16 06:47] LABS: HYPOCHROMASIA SLIGHT; MICROCYTOSIS 1+; POIKILOCYTOSIS 1+
[2017-03-16 06:48] LABS: ANISOCYTOSIS 2+; SICKLE CELLS NOTED
[2017-03-16] MEDS: ZOSYN VIAL 4.5 GM 4.5 GM in NS 100 ML IV + SPIKE MINIBAG* 100 ML IV SCH ×3 (06:49→22:32)
[2017-03-16] MEDS: VANCOMYCIN HCL 1 GM VIAL 1 GM in D5W 250 ML IV 250 ML IV SCH ×3 (06:49→23:46)
[2017-03-16] MEDS: BENADRYL INJ 50 MG VIAL IVP PRN ×2 (07:55→16:05)
[2017-03-16] MEDS: ROBITUSSIN DM PO SCH ×5 (08:58→22:31)
[2017-03-16] MEDS: FOLIC ACID TAB 1 MG PO SCH (08:59)
[2017-03-16] MEDS: POTASSIUM CHL 60 MEQ/NS 0.45% 500 ML IV PRN (08:59)
[2017-03-16] MEDS: MAXIPIME 2 GM in NS 100 ML IV + SPIKE MINIBAG* 100 ML IV SCH ×2 (09:00→20:23)
[2017-03-16] MEDS: PEPCID 20 MG IV PREMIX* 20 MG/50 ML BAG IV SCH ×2 (09:00→20:11)
[2017-03-16] MEDS: MUCOMYST 20% 200 MG/ML NEB SCH ×4 (09:44→21:32)
--- NOTE | 2017-03-16 13:29 | PCM.PROG ---
Progress Note - Progress Note for Day of Date: 03/16/17 - Subjective Subjective: patient is a 21-year-old black female who was admitted with acute sickle cell crisis and and was treated for symptomatic anemia patient also developed a pneumonia which she is currently receiving triple IV antibiotic therapy as well as respiratory therapy. Patient does have an improving white count, 26k this am Patient appears in no distress. Patient reports scant sputum production. Smart Vest and mucomyst added to resp therapy. Patient encouraged to ambulate, worse at the mental O2. We'll repeat a.m. labs - Past Medical Family Social History Past Med/Fam/Surg Hx: No changes since H&P Allergies: Allergies No Known Drug Allergies [NKDA] Allergy (Verified 03/07/17 18:32) - Review of Systems ROS: No change since H&P - Vital Signs and I&O's Vital Signs: Temperature 98.4 F Pulse Rate [Left Brachial] 88 Pulse Rate [Right Brachial] 100 Pulse Rate 80 Respiratory Rate 18 Blood Pressure [Left Arm] 117/68 Blood Pressure [Right Arm] 98/57 O2 Sat by Pulse Oximetry 90 Intake and Output: Intake & Output 03/14/17 03/15/17 03/16/17 03/17/17 11:59 11:59 11:59 11:59 Intake Total 3737 3500 3365 Output Total 1500 Balance 3737 2000 3365 - Physical Exam Oriented: Normal Eyes: Normal Ear: Normal Nose: Normal, Injected Respiratory: Diminished Cardiovascular: Normal : Normal Auscultation: Bowel Sounds: Normal Tenderness: Normal Skin: Normal Musculoskeletal: Normal, Right, Left, Shoulder, Forearm, Back:Lumbar, Tender ( diffuse muscle tenderness) Psychiatric: Normal Mood Description: Calm Affect: Normal Speech Pattern: Clear, Appropriate - Laboratory and Diagnostics Result Diagrams: 03/16/17 05:18 03/16/17 05:18 Labs: 03/11/17 09:00 Blood Blood Culture - Preliminary 03/11/17 06:30 Blood Blood Culture - Preliminary 03/07/17 18:45 Blood Blood Culture - Final 03/07/17 18:40 Blood Blood Culture - Final Laboratory WBC 26.6 X10^3/uL (3.6-10.0) H 03/16/17 05:18 RBC 2.35 X10^6/uL (3.5-5.4) L 03/16/17 05:18 Hgb 7.2 g/dL (12.0-16.0) L 03/16/17 05:18 Hct 21.3 % (36.0-47.0) L 03/16/17 05:18 MCV 90.9 fL (80.0-100.0) 03/16/17 05:18 MCH 30.8 pg (27.0-34.0) 03/16/17 05:18 MCHC 33.9 g/dL (33.0-35.0) 03/16/17 05:18 RDW 20.4 % (11.6-16.5) H 03/16/17 05:18 Plt Count 270 X10^3/uL (150.0-450.0) 03/16/17 05:18 Plt Count Comment Adequate (ADEQUATE) 03/16/17 05:18 MPV 7.7 fL (7.4-11.0) 03/16/17 05:18 Neut % 74.5 % (42.0-75.0) 03/16/17 05:18 Lymph % 10.4 % (21.0-51.0) L 03/16/17 05:18 [place] % 10.9 % (0.0-13.0) 03/16/17 05:18 Eos % 3.8 % (0.9-2.9) H 03/16/17 05:18 Baso % 0.4 % (0.2-1.0) 03/16/17 05:18 Neut # 19.9 x10^3/uL (2.2-4.8) H 03/16/17 05:18 Lymph # 2.8 X10^3/uL (1.3-2.9) 03/16/17 05:18 [place] # 2.9 x10^3/uL (0.3-0.8) H 03/16/17 05:18 Eos # 1.0 x10^3/uL (0.0-0.2) H 03/16/17 05:18 Baso # 0.1 X10^3/uL (0.0-0.1) 03/16/17 05:18 Absolute Nucleated RBC 7.6 /100WBC 03/16/17 05:18 Total Counted 100 03/16/17 05:18 Neutrophils % (Manual) 79 % (39-76) H 03/16/17 05:18 Band Neutrophils % 1 % (0-10) 03/16/17 05:18 Lymphocytes % (Manual) 12 % (13-43) L 03/16/17 05:18 Monocytes % (Manual) 6 % (4-9) 03/16/17 05:18 Eosinophils % (Manual) 2 % (0-6) 03/16/17 05:18 Metamyelocytes % 2 03/13/17 06:10 Nucleated RBCs 9 03/16/17 05:18 Atypical Lymphocytes 1 03/13/17 06:10 Plt Morphology Comment Normal (NORMAL) 03/16/17 05:18 RBC Morphology Abnormal (NORMAL) A 03/16/17 05:18 Polychromasia 2+ 03/13/17 06:10 Hypochromasia Slight A 03/16/17 05:18 Poikilocytosis 1+ A 03/16/17 05:18 Anisocytosis 2+ A 03/16/17 05:18 Microcytosis 1+ A 03/16/17 05:18 Sickle Cells Noted 03/16/17 05:18 Target Cells Slight A 03/13/17 06:10 Ovalocytes Present 03/07/17 18:40 Absolute Retic 0.3025 10^6/uL 03/12/17 16:30 Percent Retic 15.46 % (0.8-2.2) H 03/12/17 16:30 Sample Site R rad 03/11/17 10:00 ABG pH 7.450 (7.35-7.45) 03/11/17 10:00 ABG pCO2 43.0 mmHg (35.0-45.0) 03/11/17 10:00 ABG pO2 47.0 mmHg (80.0-100.0) L* 03/11/17 10:00 ABG HCO3 29.9 mmol/L (22-26) H 03/11/17 10:00 ABG O2 Saturation 85.0 % (90-100) L 03/11/17 10:00 ABG Base Excess 5.3 mmol/L (-2.0-2.0) H 03/11/17 10:00 Andrea Test Pos 03/11/17 10:00 A-a Gradient 49.0 mmHg 03/11/17 10:00 FiO2 21.000 03/11/17 10:00 Blood Gas Comments Beronica. well kb 03/11/17 10:00 Sodium 140 mmol/L (136-145) 03/16/17 05:18 Corrected Sodium TNP 03/16/17 05:18 Potassium 3.0 mmol/L (3.5-5.1) L* 03/16/17 05:18 Chloride 105 mmol/L (98-107) 03/16/17 05:18 Carbon Dioxide 27.0 mmol/L (21-32) 03/16/17 05:18 BUN 2 mg/dL (7-18) L 03/16/17 05:18 Creatinine 0.57 mg/dL (0.55-1.02) 03/16/17 05:18 Est GFR (MDRD) Af Amer > 60 (>60) 03/16/17 05:18 Est GFR (MDRD) Non-Af > 60 (>60) 03/16/17 05:18 Glucose 108 mg/dL (65-99) H 03/16/17 05:18 Calcium 8.5 mg/dL (8.5-10.1) 03/16/17 05:18 Corrected Calcium 9.7 mg/dL (8.5-10.1) 03/16/17 05:18 Magnesium 2.0 mg/dL (1.7-2.9) 03/14/17 04:10 Total Bilirubin 1.20 mg/dL (0.2-1.0) H 03/16/17 05:18 AST 22 Units/L (15-37) 03/16/17 05:18 ALT 21 Units/L (12-78) 03/16/17 05:18 Alkaline Phosphatase 80 Units/L (46-116) 03/16/17 05:18 Total Protein 7.2 g/dL (6.4-8.2) 03/16/17 05:18 Albumin 2.5 g/dL (3.4-5.0) L 03/16/17 05:18 Globulin 4.7 g/dL (2.5-4.5) H 03/16/17 05:18 Albumin/Globulin Ratio 0.5 Ratio (1.1-2.1) L 03/16/17 05:18 Specimen Type Clean catch urine 03/09/17 08:23 Urine Color Yellow (YELLOW) 03/09/17 08:23 Urine Appearance Hazy (CLEAR) 03/09/17 08:23 Urine pH 7.0 (5.0 - 8.0) 03/09/17 08:23 Ur Specific [place] 1.005 (1.000-1.030) 03/09/17 08:23 Urine Protein Negative (NEGATIVE) 03/09/17 08:23 Urine Glucose (UA) Negative (NEGATIVE) 03/09/17 08:23 Urine Ketones Negative (NEGATIVE) 03/09/17 08:23 Urine Occult Blood Negative (NEGATIVE) 03/09/17 08:23 Urine Nitrite Negative (NEGATIVE) 03/09/17 08:23 Urine Bilirubin Negative (NEGATIVE) 03/09/17 08:23 Urine Urobilinogen 1+ (NORMAL) 03/09/17 08:23 Ur Leukocyte Esterase 1+ (NEGATIVE) 03/09/17 08:23 Urine RBC 0-2 /HPF (NEGATIVE) 03/09/17 08:23 Urine WBC 0-2 /HPF (NEGATIVE) 03/09/17 08:23 Ur Squamous Epith Cells Rare /HPF (NEGATIVE) 03/09/17 08:23 Urine Bacteria Trace /HPF (NEGATIVE) 03/09/17 08:23 Ur Culture Indicated? No/not indicated 03/09/17 08:23 Vancomycin Trough 8.0 ug/mL (15-20) L 03/14/17 22:15 Blood Type O POSITIVE 03/12/17 20:00 Antibody Screen Negative 03/12/17 20:00 Crossmatch See Detail 03/12/17 20:00 - Plan (1) Pneumonia Status: Acute Plan: CT revealed multifocal pneumonia, encouraged patient to collect a sputum specimen, IV Zosyn, cefepime, vancomycin. pt encourage to ambulate, wear supplemental o2. Continue jet and abscess every 4 hours, pulmonary toileting and repeat a.m. labs (2) Joint pain Status: Acute Plan: Pain mgmt (3) Sickle cell crisis Status: Acute Plan: IV Hydration, CBC, CMP, Pain mgmt. s/p blood transfusion (4) Constipated Status: Acute Plan: ABD SERIES (5) Anemia Status: Acute Plan: s/p blood transfusion (6) Hypokalemia Status: Acute Plan: potassium replacement, am labs
[2017-03-16] MEDS: COLACE CAP 100 MG PO SCH (20:36)
[2017-03-16 20:44] LABS: CREATININE 0.59 mg/dL (0.55-1.02); VANCOMYCIN,TROUGH 15.3 ug/mL (15-20)
[2017-03-17] MEDS: DILAUDID INJ IVP PRN ×5 (01:00→23:30)
[2017-03-17] MEDS: BENADRYL INJ 50 MG VIAL IVP PRN ×3 (01:00→09:20)
[2017-03-17] MEDS: DUONEB 0.5 MG/3 MG NEB SCH ×6 (01:34→20:23)
[2017-03-17] MEDS: PHENERGAN INJ 25 MG IVP PRN ×4 (05:12→23:30)
[2017-03-17 06:13] LABS: BASOPHILS # (AUTO) 0.1 X10^3/uL (0.0-0.1); BASOPHILS % (AUTO) 0.5 % (0.2-1.0); EOSINOPHILS % (AUTO) 4.4 % (0.9-2.9); HEMATOCRIT 21.4 % (36.0-47.0); HEMOGLOBIN 7.2 g/dL (12.0-16.0); LYMPHOCYTES # (AUTO) 2.5 X10^3/uL (1.3-2.9); LYMPHOCYTES % (AUTO) 10.7 % (21.0-51.0); MEAN CORPUSCULAR HEMOGLOBIN 31.1 pg (27.0-34.0); MEAN CORPUSCULAR HGB CONC 33.8 g/dL (33.0-35.0); MEAN PLATELET VOLUME 7.5 fL (7.4-11.0); MONOCYTES # (AUTO) 2.6 x10^3/uL (0.3-0.8); MONOCYTES % (AUTO) 11.1 % (0.0-13.0); NEUTROPHILS # (AUTO) 16.8 x10^3/uL (2.2-4.8); NEUTROPHILS % (AUTO) 73.3 % (42.0-75.0); PLATELET COUNT 272 X10^3/uL (150.0-450.0); RED BLOOD COUNT 2.32 X10^6/uL (3.5-5.4); RED CELL DISTRIBUTION WIDTH 19.8 % (11.6-16.5)
[2017-03-17] MEDS: ZOSYN VIAL 4.5 GM 4.5 GM in NS 100 ML IV + SPIKE MINIBAG* 100 ML IV SCH ×3 (06:13→22:55)
[2017-03-17] MEDS: VANCOMYCIN HCL 1 GM VIAL 1 GM in D5W 250 ML IV 250 ML IV SCH ×3 (06:13→22:55)
[2017-03-17 06:37] LABS: PLATELET MORPHOLOGY COMMENT NORMAL (NORMAL)
[2017-03-17 06:38] LABS: ANISOCYTOSIS 1+; HYPOCHROMASIA 1+; POIKILOCYTOSIS SLIGHT
[2017-03-17 06:39] LABS: MICROCYTOSIS 1+; SICKLE CELLS 1+
[2017-03-17 06:40] LABS: ALANINE AMINOTRANSFERASE 17 Units/L (12-78); ALBUMIN 2.6 g/dL (3.4-5.0); ALKALINE PHOSPHATASE 74 Units/L (46-116); ASPARTATE AMINO TRANSFERASE 15 Units/L (15-37); BLOOD UREA NITROGEN 3 mg/dL (7-18); CALCIUM 8.4 mg/dL (8.5-10.1); CARBON DIOXIDE 26.9 mmol/L (21-32); CHLORIDE 107 mmol/L (98-107); COR CA(FOR HYPOALB) 9.5 mg/dL (8.5-10.1); CREATININE 0.56 mg/dL (0.55-1.02); SODIUM 141 mmol/L (136-145); TOTAL PROTEIN 7.3 g/dL (6.4-8.2); eGFR BLACK RACES > 60 (>60); eGFR NON BLACK RACES > 60 (>60)
[2017-03-17] MEDS: MUCOMYST 20% 200 MG/ML NEB SCH ×4 (08:55→20:23)
[2017-03-17] MEDS ORDERED: TORADOL 15 MG VIAL IVP PRN (08:58)
[2017-03-17] MEDS: MAXIPIME 2 GM in NS 100 ML IV + SPIKE MINIBAG* 100 ML IV SCH ×2 (09:20→20:47)
[2017-03-17] MEDS: FOLIC ACID TAB 1 MG PO SCH (09:20)
[2017-03-17] MEDS: ROBITUSSIN DM PO SCH ×4 (09:21→20:47)
[2017-03-17] MEDS: PEPCID 20 MG IV PREMIX* 20 MG/50 ML BAG IV SCH ×2 (09:21→20:47)
--- NOTE | 2017-03-17 09:34 | RAD ---
History: Sickle cell anemia and body pains Study: Portable upright AP chest Comparison: March 12 Findings: There is no significant change of bilateral lower lobe infiltrates. The upper lobes are rel atively clear. The heart size is prominent. There is an unchanged left subclavian catheter with the t ip in the SVC. Impression: No significant improvement in bilateral lower lobe pneumonia Reported By:
[2017-03-17] MEDS: NS 1000 ML 1,000 ML IV SCH ×2 (12:25→18:22)
[2017-03-17] MEDS: NORCO 10/325 TAB PO PRN (14:46)
[2017-03-17] MEDS: COLACE CAP 100 MG PO SCH (20:47)
[2017-03-18] MEDS: DUONEB 0.5 MG/3 MG NEB SCH ×3 (01:00→08:00)
[2017-03-18] MEDS: NS 1000 ML 1,000 ML IV SCH (01:20)
[2017-03-18] MEDS ORDERED: NS 250 ML IV 250 ML IV ONE (05:15)
[2017-03-18 05:32] LABS: ALANINE AMINOTRANSFERASE 13 Units/L (12-78); ALBUMIN 2.6 g/dL (3.4-5.0); ALKALINE PHOSPHATASE 65 Units/L (46-116); ASPARTATE AMINO TRANSFERASE 12 Units/L (15-37); BLOOD UREA NITROGEN 4 mg/dL (7-18); CALCIUM 8.3 mg/dL (8.5-10.1); CARBON DIOXIDE 28.7 mmol/L (21-32); CHLORIDE 108 mmol/L (98-107); COR CA(FOR HYPOALB) 9.4 mg/dL (8.5-10.1); COR NA(FOR HYPERGLY) 142 mmol/L (136-145); CREATININE 0.56 mg/dL (0.55-1.02); SODIUM 142 mmol/L (136-145); TOTAL PROTEIN 7.2 g/dL (6.4-8.2); eGFR BLACK RACES > 60 (>60); eGFR NON BLACK RACES > 60 (>60)
[2017-03-18] MEDS: PHENERGAN INJ 25 MG IVP PRN (05:34)
[2017-03-18] MEDS: DILAUDID INJ IVP PRN (05:34)
[2017-03-18 05:35] LABS: BASOPHILS # (AUTO) 0.1 X10^3/uL (0.0-0.1); BASOPHILS % (AUTO) 0.5 % (0.2-1.0); EOSINOPHILS % (AUTO) 4.3 % (0.9-2.9); HEMATOCRIT 22.8 % (36.0-47.0); HEMOGLOBIN 7.7 g/dL (12.0-16.0); LYMPHOCYTES # (AUTO) 3.4 X10^3/uL (1.3-2.9); LYMPHOCYTES % (AUTO) 15.4 % (21.0-51.0); MEAN CORPUSCULAR HGB CONC 33.8 g/dL (33.0-35.0); MEAN CORPUSCULAR VOLUME 91.7 fL (80.0-100.0); MEAN PLATELET VOLUME 7.6 fL (7.4-11.0); MONOCYTES # (AUTO) 2.2 x10^3/uL (0.3-0.8); MONOCYTES % (AUTO) 9.7 % (0.0-13.0); NEUTROPHILS # (AUTO) 15.5 x10^3/uL (2.2-4.8); NEUTROPHILS % (AUTO) 70.1 % (42.0-75.0); PLATELET COUNT 298 X10^3/uL (150.0-450.0); RED BLOOD COUNT 2.49 X10^6/uL (3.5-5.4); RED CELL DISTRIBUTION WIDTH 18.8 % (11.6-16.5); WHITE BLOOD COUNT 22.1 X10^3/uL (3.6-10.0)
[2017-03-18 05:43] LABS: CREATININE 0.65 mg/dL (0.55-1.02); VANCOMYCIN,TROUGH 14.4 ug/mL (15-20)
[2017-03-18] MEDS: ZOSYN VIAL 4.5 GM 4.5 GM in NS 100 ML IV + SPIKE MINIBAG* 100 ML IV SCH (05:52)
[2017-03-18 06:04] LABS: BAND NEUTROPHILS % 3 % (0-10); PLATELET MORPHOLOGY COMMENT NORMAL (NORMAL)
[2017-03-18 06:05] LABS: ANISOCYTOSIS 1+; HYPOCHROMASIA 1+; MICROCYTOSIS 1+; POIKILOCYTOSIS 1+; SICKLE CELLS PRESENT
[2017-03-18 06:06] LABS: TARGET CELLS PRESENT
--- NOTE | 2017-03-18 06:15 | RAD ---
Examination: Chest, PA and lateral views History: Sickle cell, pneumonia Comparison 03/17/2017 Findings: Stable cardiac size. Persistent bibasal pulmonary densities with interval improvement in ae ration of the lungs. No new abnormality noted. Stable position of central line. Impression: Interval improvement. Reported By:
[2017-03-18] MEDS: VANCOMYCIN HCL 1 GM VIAL 1 GM in D5W 250 ML IV 250 ML IV SCH (06:23)
[2017-03-18] MEDS: MUCOMYST 20% 200 MG/ML NEB SCH (08:00)
[2017-03-18] MEDS: ROBITUSSIN DM PO SCH (08:34)
[2017-03-18] MEDS: MAXIPIME 2 GM in NS 100 ML IV + SPIKE MINIBAG* 100 ML IV SCH (08:34)
[2017-03-18] MEDS: PEPCID 20 MG IV PREMIX* 20 MG/50 ML BAG IV SCH (08:34)
[2017-03-18] MEDS: FOLIC ACID TAB 1 MG PO SCH (08:34)
[2017-03-18] MEDS: NORCO 10/325 TAB PO PRN (08:35)
[2017-03-18 09:26] LABS: ABG ALLEN TEST POS; ABG BASE EXCESS 2.8 mmol/L (-2.0-2.0); ABG HCO3 27.2 mmol/L (22-26)
[2017-03-18] MEDS: BENADRYL INJ 50 MG VIAL IVP PRN (11:20)
[2017-03-18 12:03] VITALS: BP 128/82
== END 2017-03-18 12:45 | disposition home or self-care (01) | DRG 811 ==
LOC: MED/SURG 16:42 → OBSVTOIN 03-08 08:00
PROVIDERS: ADMIT Internal Medicine; ATTEND Internal Medicine
PROC: 02HV33Z Insertion of Infusion Device into Superior Vena Cava, Percutaneous Approach (ICD-10-PCS; principal; 2017-03-11)
PROC: B518ZZA Fluoroscopy of Superior Vena Cava, Guidance (ICD-10-PCS; 2017-03-11)
PROC: 30233N1 Transfusion of Nonautologous Red Blood Cells into Peripheral Vein, Percutaneous Approach (ICD-10-PCS; 2017-03-14)
PROC: 30233N1 Transfusion of Nonautologous Red Blood Cells into Peripheral Vein, Percutaneous Approach (ICD-10-PCS; 2017-03-15)
DX: D57.00 Hb-SS disease with crisis, unspecified (principal); M25.532 Pain in left wrist; R07.89 Other chest pain; M54.89 Other dorsalgia; K59.09 Other constipation; E87.6 Hypokalemia; J18.8 Other pneumonia, unspecified organism; Y95 Nosocomial condition
CPT/HCPCS: 36415; 36430; 36556; 36600; 71045; 71046; 71250; 74022; 76000; 80053; 80202; 81001; 82565; 82803; 83735; 84132; 85014; 85018; 85025; 85045; 85660; 86850; 86900; 86901; 86922; 87040; 94640; 94669; 94760; A4216; A4222; P9016; S0028; S0181; G0378; J0692; J1170; J1200; J1956; J2543; J2550; J3370; J7608; J7620

== ENCOUNTER 2017-04-25 16:58 | Inpatient (IN) | payer MEDICAID ==
--- NOTE | 2017-04-25 19:02 | DR.H&P ---
H&P - History & Physical for Day of: H&P Date: 04/25/17 - Chief Complaint Chief Complaint: Low back pain - Allergies Allergies/Adverse Reactions: Allergies Allergy/AdvReac Type Severity Reaction Status Date / Time No Known Drug Allergies Allergy Verified 03/07/17 18:32 [NKDA] - History of Present Illness History of Present Illness: The patient is a 21yo BF who presents to Clinic with complaints of Sickle Cell Crisis flare. States her back is hurting across it consistant with her flares. Denies fever, dysuria or abdominal pain. States pain does run down right leg. Complains of a deep ache. States she has been taking her pain med and drinking plenty of fluids. Denies any other complaints. - Past Medical History Additional Medical History: Sickle cell disease - Past Surgical History Surgical History: , Cholecystectomy, Other - Family History Family Medical History: Diabetes Mellitus, Cancer - Social History Does patient currently use any type of tobacco product: No Have you used tobacco products in the last 12 months: No Type of Tobacco Use: None Does any household member use tobacco: No Alcohol Use: None Drug Use: None - Review of Systems Constitutional: Malaise Eyes: No Symptoms Reported ENT: No Symptoms Reported Respiratory: No Symptoms Reported Cardiovascular: No Symptoms Reported Gastrointestinal: No Symptoms Reported Genitourinary: No Symptoms Reported Musculoskeletal: Back Pain, Leg Pain Skin: No Symptoms Reported Neurological: No Symptoms Reported - Physical Exam Vital Signs: Blood Pressure [Left Arm] 128/82 Blood Pressure [Right Arm] 117/59 Blood Pressure 128/82 Oriented: Normal Eyes: Normal Ear: Normal Nose: Normal Throat: Normal Respiratory: Clear Throughout Cardiovascular: Normal : Normal Auscultation: Bowel Sounds: Normal Palpation: Normal Tenderness: Normal Skin: Normal Musculoskeletal: Tender (lumbar) Psychiatric: Normal Mood Description: Calm Affect: Normal Speech Pattern: Clear - Assessment/Plan (1) Low back pain Qualifiers: Chronicity: acute Status: Acute Plan: Morphine IV PRN (2) Sickle cell crisis Status: Acute Plan: Labs, Retic Count, Morphine IV, IV hydration.
[2017-04-25 19:51] LABS: ALANINE AMINOTRANSFERASE 17 Units/L (12-78); ALBUMIN 3.9 g/dL (3.4-5.0); ALKALINE PHOSPHATASE 69 Units/L (46-116); ASPARTATE AMINO TRANSFERASE 14 Units/L (15-37); BLOOD UREA NITROGEN 5 mg/dL (7-18); CALCIUM 9.2 mg/dL (8.5-10.1); CARBON DIOXIDE 29.8 mmol/L (21-32); CHLORIDE 102 mmol/L (98-107); CREATININE 0.63 mg/dL (0.55-1.02); SODIUM 139 mmol/L (136-145); TOTAL PROTEIN 9.2 g/dL (6.4-8.2); eGFR BLACK RACES > 60 (>60); eGFR NON BLACK RACES > 60 (>60)
[2017-04-25 20:04] LABS: BASOPHILS # (AUTO) 0.1 X10^3/uL (0.0-0.1); BASOPHILS % (AUTO) 0.4 % (0.2-1.0); EOSINOPHILS # (AUTO) 0.3 x10^3/uL (0.0-0.2); EOSINOPHILS % (AUTO) 1.3 % (0.9-2.9); HEMATOCRIT 31.2 % (36.0-47.0); HEMOGLOBIN 10.8 g/dL (12.0-16.0); LYMPHOCYTES # (AUTO) 2.8 X10^3/uL (1.3-2.9); LYMPHOCYTES % (AUTO) 14.1 % (21.0-51.0); MEAN CORPUSCULAR HEMOGLOBIN 30.5 pg (27.0-34.0); MEAN CORPUSCULAR HGB CONC 34.5 g/dL (33.0-35.0); MEAN CORPUSCULAR VOLUME 88.3 fL (80.0-100.0); MEAN PLATELET VOLUME 6.8 fL (7.4-11.0); MONOCYTES # (AUTO) 1.7 x10^3/uL (0.3-0.8); MONOCYTES % (AUTO) 8.8 % (0.0-13.0); NEUTROPHILS # (AUTO) 14.9 x10^3/uL (2.2-4.8); NEUTROPHILS % (AUTO) 75.4 % (42.0-75.0); PLATELET COUNT 293 X10^3/uL (150.0-450.0); RED BLOOD COUNT 3.53 X10^6/uL (3.5-5.4); RED CELL DISTRIBUTION WIDTH 18.5 % (11.6-16.5); RETICULOCYTE % 6.45 % (0.8-2.2); WHITE BLOOD COUNT 19.7 X10^3/uL (3.6-10.0)
[2017-04-25 20:06] VITALS: BMI 26.1
[2017-04-25] MEDS: NS 1000 ML 1,000 ML IV SCH (20:24)
[2017-04-25] MEDS: MORPHINE SULFATE INJ 2 MG INJ IVP PRN (20:24)
[2017-04-25 20:27] LABS: HYPOCHROMASIA SLIGHT; PLATELET MORPHOLOGY COMMENT NORMAL (NORMAL)
[2017-04-25 20:28] LABS: ANISOCYTOSIS SLIGHT; POIKILOCYTOSIS PRESENT; SICKLE CELLS PRESENT; TARGET CELLS PRESENT
[2017-04-25] MEDS ORDERED: TORADOL 30 MG VIAL IVP PRN (22:17)
[2017-04-26] MEDS: MORPHINE SULFATE INJ 2 MG INJ IVP PRN ×6 (00:33→22:14)
[2017-04-26] MEDS: NS 1000 ML 1,000 ML IV SCH ×4 (03:50→20:15)
[2017-04-26 06:27] LABS: BASOPHILS # (AUTO) 0.1 X10^3/uL (0.0-0.1); BASOPHILS % (AUTO) 0.3 % (0.2-1.0); EOSINOPHILS # (AUTO) 0.4 x10^3/uL (0.0-0.2); EOSINOPHILS % (AUTO) 2.1 % (0.9-2.9); HEMOGLOBIN 9.5 g/dL (12.0-16.0); LYMPHOCYTES # (AUTO) 4.3 X10^3/uL (1.3-2.9); MEAN CORPUSCULAR HEMOGLOBIN 31.4 pg (27.0-34.0); MEAN CORPUSCULAR HGB CONC 35.1 g/dL (33.0-35.0); MEAN CORPUSCULAR VOLUME 89.5 fL (80.0-100.0); MEAN PLATELET VOLUME 6.8 fL (7.4-11.0); MONOCYTES # (AUTO) 2.1 x10^3/uL (0.3-0.8); MONOCYTES % (AUTO) 10.5 % (0.0-13.0); NEUTROPHILS # (AUTO) 13.6 x10^3/uL (2.2-4.8); NEUTROPHILS % (AUTO) 66.1 % (42.0-75.0); PLATELET COUNT 233 X10^3/uL (150.0-450.0); RED BLOOD COUNT 3.01 X10^6/uL (3.5-5.4); RED CELL DISTRIBUTION WIDTH 18.4 % (11.6-16.5); WHITE BLOOD COUNT 20.5 X10^3/uL (3.6-10.0)
[2017-04-26 06:58] LABS: ALANINE AMINOTRANSFERASE 14 Units/L (12-78); ALBUMIN 3.2 g/dL (3.4-5.0); ALKALINE PHOSPHATASE 60 Units/L (46-116); ASPARTATE AMINO TRANSFERASE 10 Units/L (15-37); BLOOD UREA NITROGEN 6 mg/dL (7-18); CALCIUM 7.9 mg/dL (8.5-10.1); CARBON DIOXIDE 23.3 mmol/L (21-32); CHLORIDE 104 mmol/L (98-107); COR CA(FOR HYPOALB) 8.5 mg/dL (8.5-10.1); COR NA(FOR HYPERGLY) 140 mmol/L (136-145); CREATININE 0.68 mg/dL (0.55-1.02); SODIUM 139 mmol/L (136-145); TOTAL PROTEIN 7.7 g/dL (6.4-8.2); eGFR BLACK RACES > 60 (>60); eGFR NON BLACK RACES > 60 (>60)
[2017-04-26] MEDS ORDERED: PHENERGAN INJ 25 MG IV PRN (08:30)
[2017-04-26] MEDS ORDERED: NORCO 10/325 TAB PO PRN (08:30)
[2017-04-26] MEDS ORDERED: K-RIDER 10 MEQ/NS 100 ML 10 MEQ/100 ML BAG IV PRN (08:59)
[2017-04-26] MEDS ORDERED: MAG-OX TAB PO PRN (08:59)
[2017-04-26] MEDS ORDERED: K-LYTE EFFERVESCENT PO PRN (08:59)
[2017-04-26] MEDS ORDERED: MAGNESIUM SULFATE 1 GM/100 mL PREMIX 1 GM/100 ML BAG IV PRN (08:59)
[2017-04-26] MEDS ORDERED: POTASSIUM CHL 60 MEQ/NS 0.45% 500 ML IV PRN (08:59)
[2017-04-26] MEDS ORDERED: POTASSIUM CHLORIDE LIQ 20 MEQ UDC PO PRN (08:59)
[2017-04-26] MEDS ORDERED: LEVAQUIN TAB 500 MG PO SCH (09:00)
--- NOTE | 2017-04-26 09:29 | RAD ---
Exam: Chest two views History: 21-year-old female with asthma. Comparison previous chest radiograph from 03/18/2017 Findings: Heart size and pulmonary vasculature are normal. Minimal atelectasis is noted at the right base. Othe rwise lungs are clear. No pleural effusion on either side. Bony thorax is normal. IMPRESSION: Minimal right basilar atelectasis. Otherwise negative chest radiograph. Reported By:
[2017-04-26] MEDS: COLACE CAP 100 MG PO SCH ×2 (09:43→20:15)
[2017-04-26] MEDS: FOLIC ACID TAB 1 MG PO SCH (09:43)
[2017-04-26] MEDS: POTASSIUM CHL 40 MEQ/NS 0.45% 500 ML IV PRN (09:50)
[2017-04-26] MEDS ORDERED: LEVAQUIN PREMIX IV 500 MG 500 MG/100 ML BAG IV SCH (13:00)
[2017-04-26 22:00] LABS: BILIRUBIN,URINE NEGATIVE (NEGATIVE); BLOOD/HEMOGLOBIN,URINE NEGATIVE (NEGATIVE); GLUCOSE, URINE NEGATIVE (NEGATIVE); KETONES,URINE NEGATIVE (NEGATIVE); LEUKOCYTE ESTERASE ,URINE 1+ (NEGATIVE); NITRITES,URINE NEGATIVE (NEGATIVE); PROTEIN,URINE NEGATIVE (NEGATIVE); UROBILINOGEN,URINE NORMAL (NORMAL)
[2017-04-26 22:08] LABS: APPEARANCE,URINE CLEAR (CLEAR); BACTERIA,URINE TRACE /HPF (NEGATIVE); COLOR,URINE YELLOW (YELLOW); RBC,URINE NONE SEEN /HPF (NONE SEEN); SQUAMOUS EPITHELIAL CELL,UR MANY /HPF (NEGATIVE)
[2017-04-27] MEDS: MORPHINE SULFATE INJ 2 MG INJ IVP PRN ×6 (02:34→23:42)
[2017-04-27] MEDS: NS 1000 ML 1,000 ML IV SCH ×4 (03:48→21:54)
[2017-04-27 06:11] LABS: ALANINE AMINOTRANSFERASE 13 Units/L (12-78); ALBUMIN 3.2 g/dL (3.4-5.0); ALKALINE PHOSPHATASE 59 Units/L (46-116); ASPARTATE AMINO TRANSFERASE 11 Units/L (15-37); BLOOD UREA NITROGEN 4 mg/dL (7-18); CALCIUM 8.4 mg/dL (8.5-10.1); CARBON DIOXIDE 25.4 mmol/L (21-32); CHLORIDE 106 mmol/L (98-107); COR NA(FOR HYPERGLY) 141 mmol/L (136-145); CREATININE 0.54 mg/dL (0.55-1.02); SODIUM 141 mmol/L (136-145); TOTAL PROTEIN 7.7 g/dL (6.4-8.2); eGFR BLACK RACES > 60 (>60); eGFR NON BLACK RACES > 60 (>60)
[2017-04-27 06:13] LABS: BASOPHILS # (AUTO) 0.1 X10^3/uL (0.0-0.1); BASOPHILS % (AUTO) 0.3 % (0.2-1.0); EOSINOPHILS # (AUTO) 0.7 x10^3/uL (0.0-0.2); EOSINOPHILS % (AUTO) 3.4 % (0.9-2.9); HEMOGLOBIN 9.3 g/dL (12.0-16.0); LYMPHOCYTES # (AUTO) 4.9 X10^3/uL (1.3-2.9); LYMPHOCYTES % (AUTO) 22.6 % (21.0-51.0); MEAN CORPUSCULAR HEMOGLOBIN 30.7 pg (27.0-34.0); MEAN CORPUSCULAR HGB CONC 34.3 g/dL (33.0-35.0); MEAN CORPUSCULAR VOLUME 89.6 fL (80.0-100.0); MEAN PLATELET VOLUME 6.8 fL (7.4-11.0); MONOCYTES # (AUTO) 2.4 x10^3/uL (0.3-0.8); MONOCYTES % (AUTO) 11.1 % (0.0-13.0); NEUTROPHILS # (AUTO) 13.6 x10^3/uL (2.2-4.8); NEUTROPHILS % (AUTO) 62.6 % (42.0-75.0); PLATELET COUNT 215 X10^3/uL (150.0-450.0); RED BLOOD COUNT 3.01 X10^6/uL (3.5-5.4); RED CELL DISTRIBUTION WIDTH 18.3 % (11.6-16.5); WHITE BLOOD COUNT 21.7 X10^3/uL (3.6-10.0)
[2017-04-27 06:34] LABS: PLATELET MORPHOLOGY COMMENT NORMAL (NORMAL)
[2017-04-27] MEDS: POTASSIUM CHL 40 MEQ/NS 0.45% 500 ML IV PRN (06:34)
[2017-04-27] MEDS: FOLIC ACID TAB 1 MG PO SCH (08:44)
[2017-04-27] MEDS: LEVAQUIN PREMIX IV 500 MG 500 MG/100 ML BAG IV SCH (08:44)
[2017-04-27] MEDS: NORCO 10/325 TAB PO PRN ×3 (12:20→21:52)
[2017-04-27] MEDS: COLACE CAP 100 MG PO SCH (21:53)
[2017-04-28] MEDS: MORPHINE SULFATE INJ 2 MG INJ IVP PRN ×3 (03:40→12:00)
[2017-04-28] MEDS: NS 1000 ML 1,000 ML IV SCH ×3 (05:33→11:03)
[2017-04-28 06:37] LABS: BASOPHILS # (AUTO) 0.1 X10^3/uL (0.0-0.1); HEMOGLOBIN 9.1 g/dL (12.0-16.0); LYMPHOCYTES # (AUTO) 4.5 X10^3/uL (1.3-2.9); MEAN PLATELET VOLUME 6.9 fL (7.4-11.0)
[2017-04-28 06:45] LABS: ALANINE AMINOTRANSFERASE 15 Units/L (12-78); ALBUMIN 3.3 g/dL (3.4-5.0); ALKALINE PHOSPHATASE 58 Units/L (46-116); ASPARTATE AMINO TRANSFERASE 19 Units/L (15-37); BASOPHILS % (AUTO) 0.4 % (0.2-1.0); BLOOD UREA NITROGEN 5 mg/dL (7-18); CALCIUM 8.4 mg/dL (8.5-10.1); CHLORIDE 106 mmol/L (98-107); CREATININE 0.56 mg/dL (0.55-1.02); EOSINOPHILS # (AUTO) 1.2 x10^3/uL (0.0-0.2); EOSINOPHILS % (AUTO) 5.4 % (0.9-2.9); HEMATOCRIT 25.8 % (36.0-47.0); MEAN CORPUSCULAR HGB CONC 35.2 g/dL (33.0-35.0); MEAN CORPUSCULAR VOLUME 88.2 fL (80.0-100.0); NEUTROPHILS # (AUTO) 12.7 x10^3/uL (2.2-4.8); NEUTROPHILS % (AUTO) 59.2 % (42.0-75.0); PLATELET COUNT 191 X10^3/uL (150.0-450.0); RED BLOOD COUNT 2.92 X10^6/uL (3.5-5.4); SODIUM 140 mmol/L (136-145); TOTAL PROTEIN 7.7 g/dL (6.4-8.2); WHITE BLOOD COUNT 21.5 X10^3/uL (3.6-10.0); eGFR BLACK RACES > 60 (>60); eGFR NON BLACK RACES > 60 (>60)
[2017-04-28 07:01] LABS: PLATELET MORPHOLOGY COMMENT NORMAL (NORMAL)
[2017-04-28 07:02] LABS: POIKILOCYTOSIS SLIGHT; SICKLE CELLS SLIGHT
[2017-04-28] MEDS: FOLIC ACID TAB 1 MG PO SCH (07:59)
[2017-04-28] MEDS: LEVAQUIN PREMIX IV 500 MG 500 MG/100 ML BAG IV SCH (07:59)
[2017-04-28] MEDS: NORCO 10/325 TAB PO PRN (09:55)
[2017-04-28] MEDS ORDERED: PERCOCET TAB 5/325 MG PO ONE (13:37)
[2017-04-28] MEDS ORDERED: BENADRYL INJ 50 MG VIAL IVP ONE (13:37)
[2017-04-28 16:05] VITALS: BP 105/57
== END 2017-04-28 16:40 | disposition home or self-care (01) | DRG 812 ==
LOC: MED/SURG 16:58 → OBSVTOIN 04-26 09:00
PROVIDERS: ADMIT Internal Medicine; ATTEND Internal Medicine
DX: D57.819 Other sickle-cell disorders with crisis, unspecified (principal); M54.5 Low back pain; K21.9 Gastro-esophageal reflux disease without esophagitis
CPT/HCPCS: 36415; 71046; 80053; 81001; 83735; 85025; 85045; 87040; 94760; A4216; A4222; G0378; J1200; J1885; J1956; J2270